=== PATIENT | male | born 1960 | race Caucasian/White ===

== ENCOUNTER → 2018-09-17 | Outpatient (CLI) | payer BC ==
[~2018-09-17] MED LIST: ACYC400T PO; GASTROGRAFIN SOLUTION 30ML (Q9963) As Ordered ONE; ISOVUE-370 76% 100ML VIAL (Q9967) As Ordered ONE; LISI40TA PO; TRAM50TA2 PO
--- NOTE | 2018-09-17 22:12 | REP ---
Clinical: Non-Hodgkin's lymphoma. Technique: Axial contrast enhanced images from the thoracic inlet to the upper abdomen with coronal and sagittal re-formations using 100 ml Isovue 370 intravenous contrast material. Findings: Bilateral lung saxena demonstrate minimal chronic-appearing fibroatelectatic changes. No focal consolidation, significant nodule or mass lesion. No pleural effusion or pneumothorax. Tracheobronchial tree is patent. No axillary, hilar, or mediastinal adenopathy. The mediastinum demonstrates normal thoracic aorta, pulmonary vasculature, and heart/pericardium. Musculoskeletal structures without focal osseous abnormality. Impression: No acute mediastinal or pleuroparenchymal process appreciated. No adenopathy, consolidation/mass or effusion. Electronically Signed by Anthony Hanson MD 09/17/2018 10:04 P
--- NOTE | 2018-09-17 22:16 | REP ---
Clinical: Non-Hodgkin's lymphoma. Technique: Axial contrast enhanced images from the lung bases to the pubic symphysis using oral (per protocol) and 100 ml Isovue 370 intravenous contrast material with coronal and sagittal re-formations as well as delayed images of the abdomen. Findings: Lung bases demonstrate minimal posterior basilar dependent changes. Visualized heart and pericardium normal. Liver, spleen, pancreas, bilateral adrenal glands and kidneys are normal. The enteric system is without obstruction or acute inflammatory process. Pelvis demonstrates normal bladder and age appropriate prostate/seminal vesicles. No ascites. No free air. 4.5 cm fat containing periumbilical hernia identified. Abdominal aorta without aneurysm or dissection. Few scattered retroperitoneal/para-aortic lymph nodes are identified measuring up to 1.8 cm diameter. Skeletal structures demonstrate degenerative changes without focal osseous abnormality. Impression: 1. Few scattered retroperitoneal and para-aortic pathologic lymph nodes measure up to 1.8 cm maximal diameter. 2. 4.5 cm fat containing periumbilical hernia. Electronically Signed by Anthony Hanson MD 09/17/2018 10:08 P
== END ==
LOC: M RAD 13:54
PROVIDERS: ATTEND Internal Medicine Hematology & Oncology
DX: C81.90 Hodgkin lymphoma, unspecified, unspecified site (principal); K42.9 Umbilical hernia without obstruction or gangrene
CPT/HCPCS: 71260; 74177; Q9963; Q9967

== ENCOUNTER → 2019-12-07 | Outpatient (CLI) | payer MEDICAID ==
[~2019-12-07] MED LIST changes: -GASTROGRAFIN SOLUTION 30ML (Q9963) As Ordered ONE; -ISOVUE-370 76% 100ML VIAL (Q9967) As Ordered ONE
== END ==
LOC: M PLARAD 13:21
PROVIDERS: ATTEND Internal Medicine Hematology & Oncology
DX: C88.4 Extranodal marginal zone B-cell lymphoma of mucosa-associated lymphoid tissue [MALT-lymphoma] (principal)
CPT/HCPCS: 78815; A9552

== ENCOUNTER 2019-12-20 02:59 | Inpatient (IN) | payer MEDICAID ==
[~2019-12-20] VITALS: Ht 182.9 cm; Wt 157.0 kg
[2019-12-20] VITALS (7 sets, daily range): BP systolic 108–126; BP diastolic 50–68
[2019-12-20] MEDS ORDERED: NS 1,000 ML IV ONE (04:00)
[2019-12-20] MEDS ORDERED: ISOVUE-370 76% 100ML VIAL As Ordered ONE (04:04)
[2019-12-20 04:08] LABS: BASO % 0.1 % (0.0-1.0); EOS # 0.4 10^3/uL (0.0-0.5); EOS % 1.6 % (0.0-3.0); HEMATOCRIT 32.6 % (42.0-52.0); HEMOGLOBIN 10.4 g/dl (13.5-17.5); LYMPH # 2.6 10^3/uL (1.5-5.0); MEAN CORPUSCULAR HEMOGLOBIN 25.5 pg (27.0-33.0); MEAN CORPUSCULAR HGB CONC 31.9 g/dl (32.0-36.5); MEAN CORPUSCULAR VOLUME 79.9 fl (80.0-96.0); MONO # 1.1 10^3/uL (0.0-0.8); MONO % 4.9 % (0.0-5.0); NEUTROPHILS # 17.4 10^3/uL (1.5-8.5); NEUTROPHILS % 80.3 % (36.0-66.0); PLATELET COUNT, AUTOMATED 336 10^3/uL (150-450); RED BLOOD COUNT 4.08 10^6/uL (4.30-6.10); WHITE BLOOD COUNT 21.7 10^3/uL (4.0-10.0)
[2019-12-20] MEDS ORDERED: AMIO200T PO (04:47)
[2019-12-20] MEDS ORDERED: ELIQ2.5T PO (04:47)
[2019-12-20] MEDS ORDERED: DILT180C70 PO (04:47)
[2019-12-20] MEDS ORDERED: DOK1CAP7 PO (04:47)
[2019-12-20 04:53] LABS: ALBUMIN 2.1 GM/DL (3.2-5.2); ALT/SGPT 54 U/L (12-78); BILIRUBIN,DIRECT 0.1 MG/DL (0.0-0.2); BILIRUBIN,TOTAL 0.4 MG/DL (0.2-1.0); CK-MB VALUE MASS < 1.0 NG/ML (<3.6); CPK CREATINE PHOSPHOKINASE 24 U/L (39-308); LIPASE 61 U/L (73-393); MB/CK RELATIVE INDEX 4.17 (< OR =4); TOTAL PROTEIN 7.6 GM/DL (6.4-8.2); TROPONIN I 0.02 NG/ML (< 0.10)
[2019-12-20] MEDS ORDERED: PIPERACILLIN/TAZOBACTAM SOD 4.5 GM in D5W MINI-BAG PLUS 50 ML IV ONE (05:00)
[2019-12-20] MEDS ORDERED: NS IV ONE (05:00)
[2019-12-20 05:24] LABS: BLOOD UREA NITROGEN 22 MG/DL (7-18); CALCIUM LEVEL 8.6 MG/DL (8.8-10.2); CARBON DIOXIDE LEVEL 26 MEQ/L (21-32); CHLORIDE LEVEL 98 MEQ/L (98-107); CREATININE FOR GFR 1.61 MG/DL (0.70-1.30); GLOMERULAR FILTRATION RATE 46.8 (>49); GLUCOSE, FASTING 181 MG/DL (70-100); POTASSIUM SERUM 4.7 MEQ/L (3.5-5.1); SODIUM LEVEL 131 MEQ/L (136-145)
--- NOTE | 2019-12-20 05:46 | ECGEPIP ---
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
[2019-12-20] MEDS ORDERED: KETOROLAC 30 MG/ML 1ML VIAL IV ONE (06:15)
[2019-12-20] MEDS ORDERED: VANCOMYCIN HCL 1,000 MG, VIAL MATE ADAPTER 1 EACH in D5W 250 ML IV ONE (07:00)
[2019-12-20 07:17] LABS: HEMOGLOBIN A1c 6.7 %
[2019-12-20 07:21] LABS: PERCENT SATURATION 6.4 % (19.7-50.0)
--- NOTE | 2019-12-20 07:21 | HPEPDOC ---
[facility] Medical History & Physical Date of Admission Dec 20, 2019 Date of Service: Dec 20, 2019 Attending Physician: OBED DALEY MD History and Physical TIME OF SERVICE: 5:25 AM CHIEF COMPLAINT: Abdominal pain HISTORY OF PRESENT ILLNESS: This is a 59-year-old male who presents with complaints of pain everywhere. Specifically's been complaining of abdominal pain that is worse with standing and better with lying down. He is also complaining of having a headache and shortness of breath. He denies having chest pain, fever, chills, runny nose, or any sick contacts. He also denies having nausea, vomiting, or pain with urination. Per discussion with Dr. Crooks, the initial CT report showed and thickening of the bladder wall , along with fat stranding, a UA was unremarkable. The initial blood pressure was 200/110, but dropped to 85/51; the patient was also found to have leukocytosis and elevated lactic acid, based on these findings Zosyn and IV fluids were ordered. 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 HOME MEDICATIONS: Please see below. PHYSICAL EXAMINATION: Vital Signs Date Time Temp Pulse Resp B/P (MAP) Pulse Ox O2 Delivery O2 Flow Rate FiO2 12/20/19 03:00 98.9 96 20 200/110 (140) 99 Room Air GEN: well-nourished / well developed/ NAD HEENT: NCAT CVS: RRR/NMRG/ radial pulses intact / trace lower extremity edema LUNGS: / lungs are clear to auscultation bilaterally on room air ABDOMEN: Contour (obese) / has umbilical hernia/ soft but tender with palpation NEURO: CN 2-12 are grossly intact / speech is not dysarthric PSYCH: alert and oriented to person place and time/ able to understand and follow all commands LABORATORY DATA: Laboratory Tests 2 12/20/19 03:58: Immature Granulocyte % (Auto) 1.1, Neutrophils (%) (Auto) 80.3H, Lymphocytes (%) (Auto) 12.0L, Monocytes (%) (Auto) 4.9, Eosinophils (%) (Auto) 1.6, Basophils (%) (Auto) 0.1, Neutrophils # (Auto) 17.4H, Lymphocytes # (Auto) 2.6, Monocytes # (Auto) 1.1H, Eosinophils # (Auto) 0.4, Basophils # (Auto) 0.0, Nucleated Red Blood Cells % (auto) 0.0, Anion Gap 7L, Glomerular Filtration Rate 46.8L, Lactic Acid Level 2.1*H, Calcium Level 8.6L, Total Bilirubin 0.4, Direct Bilirubin 0.1, Aspartate Amino Transf (AST/SGOT) 22, Alanine Aminotransferase (ALT/SGPT) 54, Alkaline Phosphatase 89, Total Creatine Kinase 24L, Creatine Kinase MB < 1.0, Creatine Kinase MB Relative Index 4.17H, Troponin I 0.02, Total Protein 7.6, Albumin 2.1L, Albumin/Globulin Ratio 0.38L, Lipase 61L 12/20/19 05:10: POC Glucose (Misc Panel) 131H, POC Sodium (Misc Panel) 132L, POC Potassium (Misc Panel) 4.7, POC Chloride (Misc Panel) 96L, POC Total CO2 (Misc Panel) 28.0H, POC Blood Urea Nitrogen (Misc Panel 21, POC Ionized Calcium (Misc Panel) 4.6, POC Creatinine (Misc Panel) 1.7H, POC Hematocrit (Misc Panel) 31.0L 12/20/19 05:22: Urine Color YELLOW, Urine Appearance CLEAR, Urine pH 5.0, Urine Specific [place] 1.051, Urine Protein NEGATIVE, Urine Glucose (UA) NEGATIVE, Urine Ketones NEGATIVE, Urine Blood 1+H, Urine Nitrite NEGATIVE, Urine Bilirubin NEGATIVE, Urine Urobilinogen 0.2, Urine Leukocyte Esterase NEGATIVE, Urine WBC (Auto) 2, Urine RBC (Auto) 2, Urine Hyaline Casts (Auto) 0, Urine Bacteria (Auto) NEGA TIVE, Urine Squamous Epithelial Cells 0, Urine Sperm (Auto) IMAGING: CT abdomen final report pending. CTA chest report pending MICROBIOLOGY: 12/20/19 Blood Culture, Received Pending 12/20/19 Blood Culture, Received Pending ASSESSMENT: Mr. Leslie is a 59 yr old M w a PMH of Marginal B-cell lymphoma, Lymphocytoplasmic lymphoma, Waldenstrm's, Obesity & HTN who is admitted for evaluation of abdominal pain and SIRS/Sepsis of unclear cause. PLAN: 1. Abdominal pain of unclear cause EKG showed heart rate of 94 with RBBB Both a UA and troponin were unremarkable Plan: Admit to PCU /Tylenol when necessary for pain/follow-up CT reports 2. SIRS/sepsis of unclear cause. Criterial include: HR >90 /WBC >12 Lactic acid >2 Plan: telemetry / f/u repeat lactic acid and exam in 3H / c/w Vanc and Meropenem per sepsis order set / switch to lactate ringers /f/u blood cx, / Acetaminophen PRN for fever / target MAP 65 to 70 / f/u Is and Os with target UOP of at least 0.5 ml/kg/H / target serum glucose 140-180 while acutely ill 3. Hypotension Plan: f/u BP after initial 4.6L of IVF / f/u orthostats / fall precautions / hold amiodarone, diltiazem & lisinopril 4. Microcytic Anemia Plan: f/u stool occult and iron studies 5. SHAYY Plan: Is/Os, daily weights / IVF / f/u ulytes for FENa or FEUrea / renal US 6. Paroxysmal Afib? Plan: hold amiodarone bc of low BP / c/w apixaban 7. 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 consult & referral to Bariatric Surgeon / recommend cardiovascular exercise for 40 min 4-5 days a week DVT PROPHYLAXIS: apixaban DISPOSITION: likely home after at least 2 midnight's stay Home Medications Scheduled Amiodarone HCl (Amiodarone HCl) 200 Mg Tablet, 200 MG PO BID Apixaban (Eliquis) 2.5 Mg Tablet, 2.5 MG PO BID Docusate Sodium (Dok) 100 Mg Capsule, 100 MG PO BID Lisinopril (Lisinopril) 40 Mg Tab, 40 MG PO DAILY dilTIAZem HCl (Diltiazem 24Hr Cd) 180 Mg Cap.er.24h, 180 MG PO DAILY Allergies Coded Allergies: No Known Allergies (Unverified , 09/01/18) A-FIB/CHADSVASC A-FIB History Current/History of A-Fib/PAF?: Yes Current PO Anticoag Therapy: Yes OBED DALEY MD Dec 20, 2019 07:21
[2019-12-20] MEDS: LR 1,000 ML IV SCH ×2 (08:30→20:29)
[2019-12-20 08:34] LABS: CALCIUM LEVEL 7.5 MG/DL (8.8-10.2); CREATININE FOR GFR 1.41 MG/DL (0.70-1.30); GLOMERULAR FILTRATION RATE 54.6 (>49); POTASSIUM SERUM 4.7 MEQ/L (3.5-5.1)
[2019-12-20] MEDS: APIXABAN 2.5 MG TAB (ELIQUIS) PO SCH ×2 (08:43→20:29)
[2019-12-20] MEDS: DOCUSATE SODIUM 100 MG CAP PO SCH ×2 (08:43→20:29)
[2019-12-20 08:49] LABS: BASO # 0.1 10^3/uL (0.0-0.2); BASO % 0.2 % (0.0-1.0); EOS # 0.2 10^3/uL (0.0-0.5); EOS % 1.2 % (0.0-3.0); HEMATOCRIT 29.6 % (42.0-52.0); HEMOGLOBIN 9.7 g/dl (13.5-17.5); LYMPH # 2.5 10^3/uL (1.5-5.0); MEAN CORPUSCULAR HGB CONC 32.8 g/dl (32.0-36.5); MEAN CORPUSCULAR VOLUME 79.4 fl (80.0-96.0); MONO # 1.2 10^3/uL (0.0-0.8); MONO % 5.8 % (0.0-5.0); NEUTROPHILS # 16.5 10^3/uL (1.5-8.5); NEUTROPHILS % 79.8 % (36.0-66.0); PLATELET COUNT, AUTOMATED 311 10^3/uL (150-450); RED BLOOD COUNT 3.73 10^6/uL (4.30-6.10); WHITE BLOOD COUNT 20.7 10^3/uL (4.0-10.0)
[2019-12-20] MEDS: VANCOMYCIN HCL 1,000 MG, VIAL MATE ADAPTER 1 EACH in D5W 250 ML IV SCH ×2 (09:51→21:53)
--- NOTE | 2019-12-20 10:54 | PHACANCOPD ---
PHARMACY VANCOMYCIN DOSING Pt Demographics Demographics Patient Age:59 , Weight:153.300 , Gender: male Adjusted Body Weight Date: 12/20/19, Adjusted Body Weight: Kg Events Past 24 Hours Events Past 24 Hours: YES: Fever, Elevation in WBC Vancomycin Vancomycin Target Ranges: 15-20 mcg/ml Vancomycin Load Y/N: Yes Load Dose Date Time Vancomycin Load Dose: 2 GM Date: 12/20/19 Time: 0900 Vancomycin Dose Date: 12/20/19. Current Vancomycin Dose: [Vanco 1 gm iv q12h] Intermittent Dosing?: No Labs Micro Microbiology 12/20/19 Blood Culture, Received Pending 12/20/19 Blood Culture, Received Pending Creatinine Clearance Date:12/20/19. Creatinine Clearance: . Assessment and Plan Maintaining Current Dose?: Yes Reason for dose change: No Dose Change Pharmacist Note Pharmacist Note Date: 12/20/19. Pharmacist note: Pharmacy consulted for Vancomycin dosing for treatment of Sepsis with a goal trough of 15-20 mcg/ml. The patient has no history of Vanco or MRSA here @ [facility]. MRSA PCR has been ordered. We'll load with 2 gms and follow with Vanco 1 gm IV q12h. Pharmacy will continue to monitor and make adjustments as needed. [facility] Dec 20, 2019 10:54
[2019-12-20] MEDS ORDERED: ACETAMINOPHEN TAB 650MG DOSE (2X325MG) PO PRN (11:00)
--- NOTE | 2019-12-20 11:10 | REP ---
RENAL ULTRASOUND: Real-time sonographic evaluation of kidneys performed. Kidneys are normal in size and echotexture, right kidney measuring 11.5 x 5.4 x 5.7 cm and left kidney 12.8 x 6.5 x 7.1 cm. There is no hydronephrosis, renal calculus, or mass identified. Urinary bladder is mildly distended and appears grossly unremarkable. IMPRESSION: Negative renal ultrasound. Preliminary report provided by [facility] at the time of the exam. Electronically Signed by Rob Bravo MD 12/20/2019 11:56 A
[2019-12-20] MEDS: MEROPENEM INJ 1 GM in IV 1 EA IV SCH ×2 (12:04→20:29)
[2019-12-20] MEDS ORDERED: CEPACOL LOZENGE PO PRN (12:45)
--- NOTE | 2019-12-20 12:51 | IPNPDOC ---
Text Note Date of Service The patient was seen on 12/20/19. NOTE Subjective: Patient continues to have back pain, sore throat and abdominal pain. In the morning 8 AM patient developed low-grade fever. Patient complains of numbness in his both hands Objective: GENERAL: awake, alert, NAD, morbidly obese male HEENT: NCAT, anicteric sclera, CATHY NECK: supple, no JVD CARDIOVASCULAR EXAMINATION: NS1S2, irregularly irregular RESPIRATORY EXAMINATION: CTA b/l, no wheezes/rales/rhonchi ABDOMINAL EXAMINATION: positive bowel sounds x 4, NT, obese EXTREMITIES: no cyanosis, clubbing, edema SKIN: warm, no rashes. NEUROLOGICAL EXAMINATION: AAO x 3, no motor/sensory deficits, hands numbness bilaterally Assessment and plan Patient is 59 years old male with past medical history of marginal B-cell lymphoma, Lymphocytoplasmic lymphoma,Waldenstrm's anemia presented to the hospital with abdominal pain. Patient was found to have low-grade fever, leukocytosis. Treatment with antibiotics started. Sepsis Unknown etiology CT abdomen/pelvis showed retro-peritoneal and pelvic adenopathy. Enlarged right obturated internus, likely infiltrated with tumor/adenopathy. Adenopathy is progressed since 09/17/18. CTA chest was unremarkable, no pulmonary emboli. Continue broad-spectrum antibiotics vancomycin and meropenem for now MRSA screen We will proceed with CT spine given persistent back pain and hands numbness in order to rule out any metastasis or spine abscess. Await blood culture Hypotension Resolved after IV fluid Microcytic anemia Most likely secondary to malignancy Check stool for blood Atrial fibrillation Heart rate is under control Continue apixaban Obesity Complicated care Obstructive sleep apnea CPAP VS,Fishbone, I+O VS, Fishbone, I+O Laboratory Tests 12/20/19 03:58 12/20/19 06:37 12/20/19 06:40 Vital Signs Date Time Temp Pulse Resp B/P (MAP) Pulse Ox O2 Delivery O2 Flow Rate FiO2 12/20/19 11:56 98 126/60 (82) 12/20/19 08:00 100.1 17 98 Room Air I&O- Last 24 Hours up to 6 AM 12/20/19 06:00 Intake Total 4650 ml Balance 4650 ml WILMER DANIEL DO Dec 20, 2019 12:51
[2019-12-20] MEDS: traMADol 50 MG TAB PO PRN (13:16)
--- NOTE | 2019-12-20 14:18 | REP ---
CT study of the cervical spine without contrast: History: Bilateral hand numbness. Back pain. Technique: Helical scanning is acquired and overlapping 2 mm high resolution axial images were generated and reviewed at bone and soft tissue window settings. Coronal and sagittal multiplanar re-formations images are generated. CT findings: There is no evidence of cervical spine element fracture. No skull base fracture is seen. Cervical vertebral body heights are preserved. Alignment is normal. Facet joints are normally aligned bilaterally at each cervical level on multiplanar re-formations images. There is no evidence of intraspinal or paraspinal hematoma. No extra vertebral abnormality is seen. There are degenerative spondylosis changes with anterior discogenic spurring at the each level from C3-4 through C6-7. There is osteoarthritis at the articulation between the dens and the anterior arch of C1. Minimal facet hypertrophy changes are noted. No visible bony destructive lesion. No foraminal stenosis is appreciated. Impression: Mild degenerative spondylosis changes. Otherwise negative CT study of the cervical spine without contrast. Electronically Signed by Michael Rhoades MD 12/20/2019 02:09 P
[2019-12-20] MEDS: AMIODARONE 200 MG TAB (PACERONE) PO SCH ×2 (15:05→20:29)
[2019-12-20] MEDS ORDERED: IBUPROFEN 400 MG TAB PO ONE (16:30)
[2019-12-20 17:29] LABS: BASO # 0.1 10^3/uL (0.0-0.2); BASO % 0.2 % (0.0-1.0); EOS # 0.2 10^3/uL (0.0-0.5); HEMATOCRIT 30.7 % (42.0-52.0); HEMOGLOBIN 10.1 g/dl (13.5-17.5); LYMPH # 2.1 10^3/uL (1.5-5.0); LYMPH % 8.8 % (24.0-44.0); MEAN CORPUSCULAR HEMOGLOBIN 26.2 pg (27.0-33.0); MEAN CORPUSCULAR HGB CONC 32.9 g/dl (32.0-36.5); MEAN CORPUSCULAR VOLUME 79.7 fl (80.0-96.0); MONO % 4.1 % (0.0-5.0); NEUTROPHILS # 20.4 10^3/uL (1.5-8.5); NEUTROPHILS % 84.5 % (36.0-66.0); PLATELET COUNT, AUTOMATED 330 10^3/uL (150-450); RED BLOOD COUNT 3.85 10^6/uL (4.30-6.10); WHITE BLOOD COUNT 24.1 10^3/uL (4.0-10.0)
--- NOTE | 2019-12-20 17:56 | REP ---
CT ANGIOGRAM CHEST: TECHNIQUE: Axial contrast enhanced images from the thoracic inlet to the upper abdomen using 100 mL Isovue 370 intravenous contrast material with multiplanar reformations. No acute infiltrate is seen in either lung. There are mild dependent atelectatic changes. There is mild cardiomegaly. There is no evidence of pulmonary embolism. There is no thoracic aortic aneurysm or dissection. There is no pleural or pericardial effusion. No mediastinal or hilar adenopathy is seen. No axillary adenopathy is seen. There are mild degenerative changes of the spine. IMPRESSION: No acute abnormalities detected. Mild cardiomegaly. Preliminary report provided by [facility] at the time of the exam. Electronically Signed by Rob Bravo MD 12/21/2019 10:23 A
[2019-12-20 19:25] LABS: TOTAL PROTEIN,RANDOM URINE 46.6 MG/DL (0.0-12.0)
[2019-12-20] MEDS: ACETAMINOPHEN *IV* 1,000 MG in IV 1 EA IV ONE (20:20)
--- NOTE | 2019-12-20 20:29 | REPVR ---
PROCEDURE INFORMATION: Exam: MR Lumbar Spine Without Contrast. Exam date and time: 12/20/2019 6:10 PM Age: 59 years old Clinical indication: Low back pain; Patient HX: Back pain, limited sequences, PT could not tolerate further imaging at this time. ; Additional info: Question epidural abscessn TECHNIQUE: Imaging protocol: Multiplanar magnetic resonance images of the lumbar spine without intravenous contrast. COMPARISON: CT Spine, lumbar w/o contrast 12/20/2019 1:54 PM FINDINGS: Limitations: Examination is limited without use of axial sequences and postcontrast sequences. Vertebral body heights are maintained. Multilevel Schmorl's node phenomena. Vertebral body hemangioma at L1. No evidence of acute fracture No cord compression. No abnormal cord signal. Conus medullaris terminates at the L1 level. L1-L2: Broad-based disc bulge causes mild bilateral foraminal narrowing. No significant canal narrowing. L2-L3: No significant canal or foraminal narrowing. L3-L4: No significant canal or foraminal narrowing. L4-L5: Broad-based disc bulge and facet hypertrophy causes mild canal narrowing with mild left and moderate right foraminal narrowing. L5-S1: Broad-based disc bulge and facet hypertrophy cause mild canal narrowing with mild right and moderate to severe left foraminal narrowing. IMPRESSION: 1. No definite acute findings in the lumbar spine, however examination limited without use of axial sequences and postcontrast sequences. If clinically indicated, consider further MR lumbar spine with axial sequences and postcontrast sequences. 2. Multilevel spondylotic changes of the lumbar spine, as detailed above. Please refer to CTA abdomen pelvis performed on same date for additional findings. Electronically signed by: Naresh Lloyd On 12/20/2019 20:29:15 PM
--- NOTE | 2019-12-20 22:55 | REP ---
CT ANGIOGRAM ABDOMEN AND PELVIS: CT angiogram abdomen and pelvis performed following the intravenous administration of 100 mL of Isovue-370. Sagittal and coronal reconstruction images are performed. The liver is mildly enlarged with diffuse fatty infiltration. No liver mass is seen. Gallbladder is grossly unremarkable. Spleen is normal in size with no intrinsic abnormality. The adrenal glands and pancreas are unremarkable. There is no hydronephrosis bilaterally. Subcentimeter hypodensity in the right kidney probably represents a cyst. There is no abdominal aortic aneurysm. There is no evidence of aortic dissection. There is moderate periaortic and pelvic adenopathy, which has increased since prior study. Largest periaortic lymph node measures 2.1 cm in short axis adjacent to the left kidney. Largest pelvic lymph node is on the right with a short axis dimension of 2.5 cm. The adjacent right obturator internus muscle is enlarged and appears to be involved with tumor. No bowel wall thickening is seen. There is no evidence of appendicitis. A small umbilical hernia contains fat, as seen on prior study of 09/17/2018. Urinary bladder is not well distended. Streaky densities in the perivesical fat could indicate cystitis. Prostate is mildly enlarged. Metallic clips are seen in the right inguinal region. There are degenerative changes of the spine. There may be some degree of narrowing at the origin of the celiac artery. IMPRESSION: Compared to the prior study of 09/17/2018, there is increased periaortic and pelvic adenopathy. There is mass-like enlargement of the right obturator internus, likely involved with tumor. Small umbilical hernia contains fat, unchanged. There is fatty infiltration of the liver with mild hepatomegaly. There may be some degree of narrowing of the celiac artery. No other evidence of acute abnormality in the abdomen or pelvis. Preliminary report provided by [facility] at the time of the exam. Electronically Signed by Rob Bravo MD 12/21/2019 10:24 A
--- NOTE | 2019-12-20 23:38 | REP ---
CT STUDY OF THE LUMBAR SPINE WITHOUT CONTRAST: HISTORY: Bilateral hand numbness. Back pain. TECHNIQUE: Helical scanning is acquired. Axial 4 mm images are reformatted. Coronal and sagittal MPR images are generated. CT FINDINGS: Lumbar vertebral body heights are preserved. Alignment is normal. There is no evidence of spondylolysis or spondylolisthesis. No bony destructive lesion is appreciated. There are small Schmorl nodes involving the endplates on either side of the L2-3 and L1-2 disc spaces. There is discogenic spurring at L4-5 and, to a lesser extent, at L5-S1. At the L5-S1 disc level, there is central disc bulging effacing the ventral epidural fat but not compressing the nerve roots or thecal sac. No bony foraminal narrowing is seen. There is mild osteoarthritic facet hypertrophy bilaterally. At L4-5, canal size is developmentally small. There is diffuse disc bulging. Minimal ligamentum flavum and facet hypertrophy combined with the above factors to produce moderate central canal stenosis at L4-5. The thecal sac measures approximately 7 mm in midline AP dimension. No definite neural foraminal narrowing. At L3-4, there is mild to moderate central canal stenosis as well due to developmentally short pedicles and diffuse disc bulging. Midline AP dimension of the thecal sac is 7 mm. There is mild foraminal disc bulging bilaterally. No definite nerve root compression, however. At L2-3, there is mild central canal stenosis due to mild disc bulging and developmentally short pedicles. No neural foraminal narrowing is seen. The L1-2 disc level is unremarkable. 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 Mild degenerative disc and facet changes. No acute abnormality seen. Electronically Signed by Michael Rhoades MD 12/21/2019 07:49 A
[2019-12-21] VITALS (7 sets, daily range): BP systolic 107–128; BP diastolic 59–74
[2019-12-21] MEDS: traMADol 50 MG TAB PO PRN (00:09)
--- NOTE | 2019-12-21 00:09 | REP ---
CT THORACIC SPINE WITHOUT CONTRAST: HISTORY: Back pain. Bilateral hand numbness. TECHNIQUE: Helical scanning is acquired. 4 mm axial images are reformatted. Coronal and sagittal MPR images are generated and reviewed. CT FINDINGS: Thoracic vertebral body heights are preserved. Alignment is normal. There is moderate anterior discogenic spurring, most pronounced along the right lateral anterior margin of the lower thoracic spine. No bony destructive lesion is seen. No fracture or collapse is observed. No bony neural foraminal narrowing is appreciated. There is a hemangioma on the right side of the L1 vertebral body. No extraspinal soft tissue abnormality is seen. No thoracic disc protrusion is appreciated. IMPRESSION: Degenerative spondylosis changes. No acute bony abnormality. Electronically Signed by Michael Rhoades MD 12/21/2019 07:50 A
[2019-12-21] MEDS: LR 1,000 ML IV SCH ×3 (00:10→20:41)
[2019-12-21] MEDS: RAMELTEON 8 MG TAB (ROZEREM) PO SCH ×2 (01:50→20:40)
[2019-12-21] MEDS: ACETAMINOPHEN *IV* 1,000 MG in IV 1 EA IV ONE (02:00)
[2019-12-21 03:02] LABS: MEAN CORPUSCULAR HEMOGLOBIN 25.4 pg (27.0-33.0); MEAN CORPUSCULAR HGB CONC 32.1 g/dl (32.0-36.5); MEAN CORPUSCULAR VOLUME 79.1 fl (80.0-96.0); PLATELET COUNT, AUTOMATED 297 10^3/uL (150-450); RED BLOOD COUNT 3.54 10^6/uL (4.30-6.10); WHITE BLOOD COUNT 19.9 10^3/uL (4.0-10.0)
[2019-12-21 03:25] LABS: ERYTHROCYTE SEDIMENTATION RATE 128 mm/hr (0-20)
[2019-12-21 03:30] LABS: BLOOD UREA NITROGEN 16 MG/DL (7-18); CALCIUM LEVEL 7.7 MG/DL (8.8-10.2); CARBON DIOXIDE LEVEL 25 MEQ/L (21-32); CHLORIDE LEVEL 102 MEQ/L (98-107); CPK CREATINE PHOSPHOKINASE 19 U/L (39-308); CREATININE FOR GFR 1.25 MG/DL (0.70-1.30); GLOMERULAR FILTRATION RATE > 60.0 (>49); GLUCOSE, FASTING 128 MG/DL (70-100); POTASSIUM SERUM 4.6 MEQ/L (3.5-5.1); SODIUM LEVEL 133 MEQ/L (136-145)
[2019-12-21] MEDS: MEROPENEM INJ 1 GM in IV 1 EA IV SCH ×3 (04:31→20:41)
[2019-12-21 04:54] LABS: ERYTHROCYTE SEDIMENTATION RATE 93 mm/hr (0-20)
[2019-12-21] MEDS: DOCUSATE SODIUM 100 MG CAP PO SCH ×2 (08:30→20:41)
[2019-12-21] MEDS: APIXABAN 2.5 MG TAB (ELIQUIS) PO SCH ×2 (08:30→20:41)
[2019-12-21] MEDS: AMIODARONE 200 MG TAB (PACERONE) PO SCH ×2 (08:30→20:41)
[2019-12-21] MEDS: PERCOCET 5MG/325MG TAB PO PRN ×3 (09:19→20:40)
--- NOTE | 2019-12-21 10:13 | PHACANCOPD ---
PHARMACY VANCOMYCIN DOSING Pt Demographics Demographics Patient Age:59 , Weight:157.200 , Gender: male Adjusted Body Weight Date: 12/20/19, Adjusted Body Weight: Kg Vancomycin Vancomycin Target Ranges: 15-20 mcg/ml Vancomycin Load Y/N: Yes Load Dose Date Time Vancomycin Load Dose: 2 GM Date: 12/20/19 Time: 0900 Vancomycin Dose Date: 12/21/19. Current Vancomycin Dose: [Vanco 1250 mg IV q12h] Date: 12/20/19. Current Vancomycin Dose: [Vanco 1 gm iv q12h] Intermittent Dosing?: No Labs Micro Microbiology 12/20/19 Blood Culture, Received Pending 12/20/19 - Final, Complete 12/20/19 Blood Culture - Preliminary, Resulted No growth after 24 hours . All specim... 12/20/19 Blood Culture - Preliminary, Resulted No growth after 24 hours . All specim... Creatinine Clearance Date:12/20/19. Creatinine Clearance: . Assessment and Plan Maintaining Current Dose?: No Reason for dose change: Trough too low Pharmacist Note Pharmacist Note Date: 12/21/19. Pharmacist note: Trough drawn @0907 resulted at 7.6. We'll give him an additional 500 mg and increase maintenance dose to 1250 mg IV q12h starting @2100. Pharmacy will continue to monitor and make adjustments as needed. Date: 12/20/19. Pharmacist note: Pharmacy consulted for Vancomycin dosing for treatment of Sepsis with a goal trough of 15-20 mcg/ml. The patient has no history of Vanco or MRSA here @ [facility]. MRSA PCR has been ordered. We'll load with 2 gms and follow with Vanco 1 gm IV q12h. Pharmacy will continue to monitor and make adjustments as needed. [facility] Dec 21, 2019 10:13
[2019-12-21] MEDS: VANCOMYCIN HCL 1,000 MG, VIAL MATE ADAPTER 1 EACH in D5W 250 ML IV SCH (10:20)
[2019-12-21] MEDS ORDERED: VANCOMYCIN HCL 500 MG in D5W MINI-BAG PLUS 100 ML IV ONE (11:00)
[2019-12-21 13:42] LABS: BASO % 0.1 % (0.0-1.0); EOS # 0.4 10^3/uL (0.0-0.5); EOS % 2.2 % (0.0-3.0); HEMATOCRIT 28.8 % (42.0-52.0); HEMOGLOBIN 9.3 g/dl (13.5-17.5); LYMPH # 1.3 10^3/uL (1.5-5.0); LYMPH % 7.9 % (24.0-44.0); MEAN CORPUSCULAR HEMOGLOBIN 25.8 pg (27.0-33.0); MEAN CORPUSCULAR HGB CONC 32.3 g/dl (32.0-36.5); MEAN CORPUSCULAR VOLUME 79.8 fl (80.0-96.0); MONO # 0.4 10^3/uL (0.0-0.8); MONO % 2.2 % (0.0-5.0); NEUTROPHILS # 14.7 10^3/uL (1.5-8.5); NEUTROPHILS % 86.8 % (36.0-66.0); PLATELET COUNT, AUTOMATED 302 10^3/uL (150-450); RED BLOOD COUNT 3.61 10^6/uL (4.30-6.10); WHITE BLOOD COUNT 16.9 10^3/uL (4.0-10.0)
[2019-12-21 14:14] LABS: ALT/SGPT 41 U/L (12-78); BILIRUBIN,TOTAL 0.5 MG/DL (0.2-1.0); BLOOD UREA NITROGEN 15 MG/DL (7-18); CALCIUM LEVEL 8.5 MG/DL (8.8-10.2); CARBON DIOXIDE LEVEL 24 MEQ/L (21-32); CHLORIDE LEVEL 99 MEQ/L (98-107); CREATININE FOR GFR 1.19 MG/DL (0.70-1.30); GLOMERULAR FILTRATION RATE > 60.0 (>49); GLUCOSE, FASTING 171 MG/DL (70-100); POTASSIUM SERUM 4.6 MEQ/L (3.5-5.1); SODIUM LEVEL 130 MEQ/L (136-145); TOTAL PROTEIN 7.6 GM/DL (6.4-8.2)
--- NOTE | 2019-12-21 14:50 | IPNPDOC ---
Text Note Date of Service The patient was seen on 12/21/19. NOTE Subjective: Patient continues to have back pain. Fever resolved. Also patient complains of sore muscle, he described as diffuse muscle pain of upper extremities. Objective: GENERAL: awake, alert, NAD, morbidly obese male HEENT: NCAT, anicteric sclera, CATHY NECK: supple, no JVD CARDIOVASCULAR EXAMINATION: NS1S2, irregularly irregular RESPIRATORY EXAMINATION: CTA b/l, no wheezes/rales/rhonchi ABDOMINAL EXAMINATION: positive bowel sounds x 4, NT, obese Back: no pinpoint tenderness, flexion, extension limited and painfull EXTREMITIES: no cyanosis, clubbing, edema SKIN: warm, no rashes. NEUROLOGICAL EXAMINATION: AAO x 3, no motor/sensory deficits, hands numbness bilaterally Assessment and plan Patient is 59 years old male with past medical history of marginal B-cell lymphoma, Lymphocytoplasmic lymphoma,Waldenstrm's anemia presented to the hospital with abdominal pain. Patient was found to have low-grade fever, leukocytosis. Treatment with antibiotics started. Sepsis Unknown etiology CT abdomen/pelvis showed retro-peritoneal and pelvic adenopathy. Enlarged right obturated internus, likely infiltrated with tumor/adenopathy. Adenopathy is progressed since 09/17/18. CTA chest was unremarkable, no pulmonary emboli. Continue broad-spectrum antibiotics vancomycin and meropenem for now MRSA screen CT spine negative for epidural abscess or mets MRI lumbar negative for epidural abscess blood culture negative Patient was not able to tolerate MRI of the neck and thoracic area ESR elevated to 128. We will proceed with echo Appreciate/agree with oncologist and ID consult Hypotension Resolved after IV fluid Microcytic anemia Most likely secondary to malignancy Check stool for blood We'll start iron supplementation Atrial fibrillation Heart rate is under control Continue apixaban Obesity Complicated care Obstructive sleep apnea CPAP SHAYY Secondary to volume contraction due to dehydration and sepsis Improved VS,Fishbone, I+O VS, Fishbone, I+O Laboratory Tests 12/20/19 17:04 12/21/19 02:55 12/21/19 13:25 Vital Signs Date Time Temp Pulse Resp B/P (MAP) Pulse Ox O2 Delivery O2 Flow Rate FiO2 12/21/19 12:00 98.6 77 20 117/63 (81) 94 Room Air I&O- Last 24 Hours up to 6 AM 12/21/19 06:00 Intake Total 4998 ml Output Total 2505 ml Balance 2493 ml WILMER DANIEL DO Dec 21, 2019 14:50
[2019-12-21] MEDS ORDERED: IRON SUCROSE 100MG 5ML VIAL (J1756 PER 1MG) IV ONE (15:00)
[2019-12-21] MEDS ORDERED: methylPREDNISolone INJ 125 MG/2 ML VIAL (J2930) IV ONE (15:30)
[2019-12-21] MEDS ORDERED: IRON SUCROSE 100 MG in NS 100 ML OVER 1 HR IV ONE (17:00)
[2019-12-21] MEDS: DOXYCYCLINE HYCLATE 100 MG in D5W MINI-BAG PLUS 100 ML IV SCH (18:07)
[2019-12-21 20:36] LABS: IMMUNOGLOBULIN A 59.6 MG/DL (70-400); IMMUNOGLOBULIN G 315 MG/DL (681-1648); TOTAL PROTEIN 7.5 GM/DL (6.4-8.2)
[2019-12-21] MEDS ORDERED: VANCOMYCIN HCL 750 MG, VIAL MATE ADAPTER 1 EACH in D5W 250 ML IV SCH (21:00)
[2019-12-21] MEDS ORDERED: VANCOMYCIN HCL 500 MG in D5W MINI-BAG PLUS 100 ML IV SCH (22:00)
[2019-12-22] VITALS: BP 116/64
[2019-12-22] MEDS: traMADol 50 MG TAB PO PRN (00:23)
[2019-12-22] MEDS: LR 1,000 ML IV SCH (00:24)
[2019-12-22] MEDS: MEROPENEM INJ 1 GM in IV 1 EA IV SCH ×2 (03:56→12:09)
[2019-12-22 04:00] VITALS: BP 137/74
[2019-12-22] MEDS: DOXYCYCLINE HYCLATE 100 MG in D5W MINI-BAG PLUS 100 ML IV SCH (04:57)
[2019-12-22 05:33] LABS: BASO % 0.1 % (0.0-1.0); HEMOGLOBIN 8.8 g/dl (13.5-17.5); LYMPH # 0.8 10^3/uL (1.5-5.0); LYMPH % 6.7 % (24.0-44.0); MEAN CORPUSCULAR HEMOGLOBIN 26.1 pg (27.0-33.0); MEAN CORPUSCULAR HGB CONC 32.6 g/dl (32.0-36.5); MEAN CORPUSCULAR VOLUME 80.1 fl (80.0-96.0); MONO # 0.2 10^3/uL (0.0-0.8); MONO % 1.4 % (0.0-5.0); NEUTROPHILS # 10.8 10^3/uL (1.5-8.5); PLATELET COUNT, AUTOMATED 284 10^3/uL (150-450); RED BLOOD COUNT 3.37 10^6/uL (4.30-6.10); WHITE BLOOD COUNT 11.8 10^3/uL (4.0-10.0)
[2019-12-22 05:56] LABS: ALBUMIN 1.9 GM/DL (3.2-5.2); ALT/SGPT 38 U/L (12-78); BILIRUBIN,TOTAL 0.3 MG/DL (0.2-1.0); BLOOD UREA NITROGEN 15 MG/DL (7-18); CALCIUM LEVEL 8.5 MG/DL (8.8-10.2); CARBON DIOXIDE LEVEL 26 MEQ/L (21-32); CHLORIDE LEVEL 102 MEQ/L (98-107); CREATININE FOR GFR 1.01 MG/DL (0.70-1.30); GLOMERULAR FILTRATION RATE > 60.0 (>49); GLUCOSE, FASTING 217 MG/DL (70-100); MAGNESIUM LEVEL 2.3 MG/DL (1.8-2.4); POTASSIUM SERUM 4.7 MEQ/L (3.5-5.1); SODIUM LEVEL 134 MEQ/L (136-145); TOTAL PROTEIN 7.9 GM/DL (6.4-8.2)
[2019-12-22] MEDS: PERCOCET 5MG/325MG TAB PO PRN (06:33)
[2019-12-22 08:00] VITALS: BP 131/72
--- NOTE | 2019-12-22 08:12 | CR ---
DATE OF CONSULTATION: 12/21/2019 REASON FOR CONSULTATION: We were asked to see Mr. Naresh Leslie due to sepsis of unclear etiology. HISTORY OF PRESENT ILLNESS: Naresh is a 59-year-old male who presented to the emergency department at [facility] on 12/20/2019 due to about a week history of burning pain all over his body. His symptoms began after receiving chemotherapy treatment on 12/10/2019. He was treated with bendamustine and Rituximab and decadron on that date. He states he has a history of reaction to Rituximab and was told previously not to take it due to allergic reaction. During the infusion, he began to experience tightness and pain in his neck and some difficulty breathing. He then developed burning pain all over his body. He also noted some abdominal pain which worsened upon standing and improved upon laying down. He also experienced subjective fevers and chills alternating. He states that he would lay in his car because he could adjust the seat to a comfortable position and adjust the heated seat depending on if he was feeling hot or cold. He denied any night sweats, change in weight, nausea, vomiting, cough, upper respiratory infection symptoms, dysuria, diarrhea, or constipation. He states he has pain with any type of movement, especially when putting pressure on a certain area will elicit pain in that area or tightening of the muscles in his legs will elicit pain. He states this feels similar to the reaction he had previously to Rituximab, but at that time years ago when he had this reaction the infusion was stopped and he was given Benadryl. He states at that time his symptoms resolved more quickly. After his infusion on 12/10/2019, he presented to [facility] on 12/11/2019. He states he spent three nights at the hospital. He states he received antibiotics and was treated for new onset atrial fibrillation. He did not receive any antibiotics on discharge. He continued to have worsening symptoms over the course of the week until he presented to [facility] emergency department the other day. He has not had any sick contacts. On admission, the patient was started on vancomycin and meropenem for broad spectrum antibiotic coverage. He experienced a T-max of 103.3 on 12/20/2019. He states his symptoms have not improved since he was admitted to the hospital Past Medical history: 1- lymphoblastic lymphoma/Waldenstrom macroglobulinemia which was initially diagnosed in [place] in November 2015. He received chemotherapy with multiple different regimens and had the best response with bendamustine and Rituximab, based on the notes from our local oncologist practice. He was doing well up until about September 2019 when he was noted to have some progression of the disease and it was decided that he should be restarted on the bendamustine and Rituximab chemotherapy. His treatment on 12/10/2019 was the first treatment he received since establishing care with the oncologist in [place], [place]. 2- Menno spotted fever at one point when he lived in [place] many years ago. He states that this also feels quite similar to that disease process treated with doxycycline. 3- paroxysmal atrial fibrillation, chronic hypertension, obesity. REVIEW OF SYSTEMS: Ten point review of systems negative other than pertinent positives discussed in history of present illness (HPI). SURGICAL HISTORY: Left knee arthroscopy, right inguinal lymph node excision/biopsy. SOCIAL HISTORY: Smoked one pack per day for many years, recently cut back to a half a pack a day, has not smoked since 12/10/2019. Social alcohol use. Denies illicit or IV drug use. Originally from the [facility]. Lived in [place] for about 16 years. Moved back to the [facility] about a year and a half ago. FAMILY HISTORY: Significant for diabetes and hypercholesterolemia in family members. One sibling had colon cancer. HOME MEDICATIONS - amiodarone 200 mg twice a day - Eliquis 2.5 mg twice a day - lisinopril 40 mg daily - diltiazem ER 180 mg daily ALLERGIES: Reports previous allergic reaction to RITUXIMAB with burning pain all over his body and difficulty breathing. PHYSICAL EXAMINATION: Vital Signs: Temperature 98.6, 24 hour T-max 103.3, heart rate 77, respiratory rate 20, blood pressure 117/63, oxygen saturation 94% on room air. General: Appears somewhat uncomfortable, lying in bed, no acute distress, well hydrated and nourished. HEENT: Normocephalic, atraumatic. Sclerae anicteric. Conjunctivae slightly injected bilaterally. Moist mucous membranes. No lesions in the mouth. Neck: Supple. No lymphadenopathy appreciated. Lungs: Clear to auscultation bilaterally. No wheezing, rhonchi or rales noted. Heart: Regular rate and rhythm. Normal S1, S2. No murmurs, rubs or gallops appreciated. Abdomen: Obese. Soft. Nontender. Bowel sounds present. Small umbilical hernia noted. Extremities: Non pitting edema in the ankles and hands bilaterally. Pulses 2+ in the radial and dorsalis pedis arteries. No cyanosis or clubbing. Skin: Blanching erythematous rash across the cheeks and abdomen. Neurologic: Alert and oriented. No focal deficits appreciated. LABORATORY DATA: White blood cell count 16.9, hemoglobin 9.3, hematocrit 28.8, platelet count 302. ESR 128. Sodium 130, potassium 4.6, chloride 99, bicarbonate 24, BUN 15, creatinine 1.19, glucose 171, calcium 8.5, total bilirubin 0.5, AST 19, ALT 41, alkaline phosphatase 84, total protein 7.6, albumin 2.0. C-reactive protein 14.0. Creatinine kinase 26. Procalcitonin pending. Vancomycin trough 7.6. Urinalysis significant for 1+ blood, otherwise negative. Methicillin-resistant Staphylococcus aureus (MRSA) PCR negative. COVID-19 PCR negative. Blood cultures times two negative at 24 hours, unclear if these were drawn from peripheral site or port. Blood culture drawn after administration of antibiotics is pending. Respiratory PCR negative. IMAGING: From 12/20/2019, CT angiography abdomen/pelvis significant for increased periaortic and pelvic adenopathy. There is a mass-like enlargement of the right obturator internus, likely involved with tumor. Small umbilical hernia contains fat, unchanged. There is fatty infiltration of the liver with mild hepatomegaly. There is some degree of narrowing of the celiac artery, no other evidence of acute abnormality in the abdomen or pelvis. CT angiography chest significant for no acute abnormalities detected, mild cardiomegaly. Renal ultrasound, negative renal ultrasound. CT thoracic spine significant for degenerative spondylosis changes, no acute bony abnormality. CT lumbar spine significant for developmental and acquired central calcinosis, central canal stenosis, moderate at L4-5 and mild to moderate L3-4. Mild degenerative disk and facet changes. No acute abnormalities seen. CT cervical spine significant for mild degenerative spondylosis changes. MRI lumbar spine significant for multi level spondylotic changes of the lumbar spine, no definitive acute findings; however, examination limited without the use of axial sequences and post contract sequences. IMPRESSION: Sepsis due to unclear etiology. Patient is not presenting with any evident localizing symptoms. Reaction to Rituximab is a possibility, as it can cause a serum sickness reaction. This often occurs as a delayed reaction, but if he has received Rituximab multiple times in the past the reaction may occur more acutely to the time of administration. He also may have had a combined allergic reaction acutely and developed a serum sickness reaction in the following days. Imaging at this point has not revealed any clear infection source. Infection of his Kahdnd-M-Chfn is on the differential, although with such a systemic reaction I would expect peripheral blood cultures to be positive if the port was infected. Currently, the [facility] is not able to draw blood, but if this were cleared with tPA, we could draw a blood culture from the port. Also in the differential is tick borne disease, which he has had in the past and presented similarly. It is not currently tick season, so this is less likely, although he could be having a delayed reaction. PLAN: We have discontinued vancomycin and started the patient on IV doxycycline to cover for most tick borne illness. We will continue meropenem for broad spectrum coverage. We have also given him a dose of prednisone for concern of a serum sickness type reaction. Dr. Wiggins from oncology is also consulted to see the patient and will help decide whether to continue with steroid coverage. We will try to obtain the records from the recent admission to [facility] and the patient's records from the cancer center he was treated at in [place] to better understand the reaction he had to Rituximab during their treatment. We have also ordered tick borne illness panels to help rule out this possibility. Thank you for this consult, we will continue to follow along. YANNICK
--- NOTE | 2019-12-22 09:33 | CR ---
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 REQUESTING PHYSICIAN: Carter Beaver MD HISTORY OF PRESENT ILLNESS: Mr. Kincaid is of a 59-year-old man under the care of Dr. 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 Immunohistochemistry positive for CD5, CD10, CD23, and cyclin D1 negative. Positive for MYD88 L265P alteration consistent with lymphoplasmacytic lymphoma. A bone marrow biopsy in December of 2015 showed marrow replaced with low grade lymphoma. Baseline M-spike was 4.6 gram IgM lambda, IgM level 8070, serum viscosity not assessed, beta-2 microglobulin not assessed, hep C negative at the time. PET/CT on initial workup showed lymphadenopathy involving chest, abdomen, and mainly pelvis including up to 5 cm right inguinal lymph node SUV 4, no splenomegaly and no apparent extra flowre disease. He was treated with weekly bortezomib between January 08 and January 23, 2016 with no response by IgM. On January 16, 2016 he started rituximab. On January 30, 2016 carfilzomib was added to the rituximab both discontinued a week later no response by IgM. In the third week of January 2016 he was started on ibrutinib. The baseline M- spike 5 gram baseline IgM at that 8180. This was continued until August 2017 when it was stopped due to progression. He then transferred his care in April 2017 to Sierra Ogden MD in [place]. Of note, on his initial visit with Dr. Ogden the patient complained of mild diffuse arthritic aches and pains. CTs as late as May 2018 showed retroperitoneal and pelvic lymphadenopathy with improvement, para-aortic lymphadenopathy up to 12 mm. The history further contains the story that on receiving bendamustine and rituximab, rituximab was discontinued after one cycle due to the patient's complaint of severe malaise and body aches; Dr. Ogden suspected his complaints were related to hyperviscosity in a setting of an IgM flareup to 7000. He apparently completed five more cycles with bendamustine alone with good response. This history was all obtained towards late 2017. The patient has been traveling back and forth between [facility] and [place]. He was followed by Dr. Callejas in February 2019 here at the cancer center. Under Dr. Callejas he continued on observation. 9 months later, he presented again in early November and saw Dr. Benjamín Flores of the cancer center. At this time, Dr. Flores recommended treatment again with bendamustine/rituximab based on the patient's prior response to bendamustine/rituximab, and apparent progression through ibrutinib. Baseline [facility] from early November showed IgM 2460, serum viscosity 2.5 elevated, WBC 11.4, hemoglobin/hematocrit 12 and 37, platelets normal, renal and liver function also normal, albumin 3.2. On 12/09/2019, the patient started reinduction treatment receiving bendamustine that day followed bendamustine and rituximab the following day, 12/10/2019. Infusion itself was uneventful but Naresh reports beginning to feel poorly within 24-48 hours and went to the [facility] on Friday the . There. He was admitted with general myalgias, fever, and he reports shortness of breath. He has put in isolation, left against medical advice after 2 days. He does not recall what treatment he received. Through the following week from the to the he again felt very poorly, sleeping in his car to try to get comfortable with generalized stiffness, pain, weakness in his arms and legs. He reports shortness of breath was not a primary symptom. He was not sure if he had fever, but he just felt so awful that he presented again to the emergency room on Friday the 18 of December. In the emergency room, early in the morning of the he was initially afebrile but hypertensive with blood pressure 200/110 and mildly tachycardiac, heart rate 96. A followup blood pressure showed 86/52 in early a.m. the , normal heart rate and he continued hypotensive into the avionics systems technician of the . Temperature at 8 a.m. was 100. He was admitted and started on SIRS protocol, covered with antibiotics and given fluids. He spiked a fever to 103.1 4 p.m. yesterday on the . He has had extensive imaging in addition to blood and urine cultures. The cultures have all been negative to date. CT angiography of the chest on the showed increased periaortic lymphadenopathy but this was compared to August 2018. It showed mass-like enlargement of the right obturator internus likely involved with tumor, extensive retroperitoneal and pelvic lymphadenopathy, some question of cystitis. Renal ultrasound was essentially a negative study. Because of the complaint of musculoskeletal and back pain he underwent thoracic and lumbar spine CTs as well as cervical spine CT and lumbar spine MRI. These were all without contrast, but were found no major suspicious findings, no evidence of epidural abscess. Labs through the last 24 hours have showed leukocytosis, anemia, persistently normal renal function, low albumin. Notably sed rate on admission was 93 and a repeat today 128. Serum viscosity has not been repeated. LDH is normal, lactic acid normal. COVID-19 testing negative. Infectious disease consult was called. A history of babesiosis was elicited and serologies are pending, but Dr. Barber's acute, astute clinical eye and assessment is that this may be an allergic reaction either to bendamustine or rituximab. Based on the notes from [place] I suspect bendamustine, so notably the patient uneventfully underwent the first treatment followed by a second treatment over the course of 48 hours having no allergic response but developing allergic response about 24-48 hours after the second day which was accompanied by rituximab. The history of the drug administrations in [place] is confusing the picture but overall with no infectious findings allergic reaction need be considered. At the bedside, Naresh reports being much more comfortable since receiving steroids earlier today. However, when I asked him to lift his arm for exam he is quite stiff and has difficulty doing this. He is not able to localize any one side of pain. He has a history of chronic low back pain from an injury. He denies shortness of breath. He just generally has felt ill he says. PAST MEDICAL HISTORY: Marginal B-cell lymphoma/lymphoplasmacytic lymphoma. Waldenstrom's anemia Obesity. Paroxysmal atrial fibrillation. Chronic hypertension. Chronic low back pain. Atrial fibrillation. PAST SURGICAL HISTORY: Vasectomy. Excisional lymph node removal. ALLERGIES: NO KNOWN DRUG ALLERGIES. HOME MEDICATIONS ON ADMISSION: - amiodarone 200 mg b.i.d. - apixaban 2.5 mg b.i.d. - docusate 100 mg b.i.d. - lisinopril 40 mg daily - diltiazem 180 mg q.24 hours SOCIAL HISTORY: Fairly long smoking history stopped recently, alcohol use in the past. FAMILY HISTORY: Not elicited. REVIEW OF SYSTEMS: In addition to pertinent positives and negatives above, Mr. Leslie denies recent constipation, urinary difficulties, has some light diarrhea, no blood in the stool, no blood in the urine. No history of severe arthralgias but history of chronic low back pain. Denies shortness of breath, cough, difficulty swallowing, abdominal pain, headache, visual disturbance, hearing difficulties, skin rash. FOCUSED PHYSICAL EXAMINATION: Vital Signs: Temperature 98.8, blood pressure 126/61, heart rate 75, respiratory 18, O2 sat 94% room air. The patient is a very robust appearing, tall, overweight gentleman, lying in bed, pleasant, good eye contact, good conversationalist, not detailed as a historian. Respiratory: Clear lungs throughout the lung saxena. No wheezes or rales. Cardiac: S1, S2 , regular to my auscultation today, non-tachycardiac. Abdomen is soft, obese, nontender, nondistended. No hepatosplenomegaly or mass. Extremities: No pitting edema, symmetric. Lymph Nodes: No palpable submandibular, cervical, supraclavicular or axillary adenopathy bilaterally. LABORATORY DATA: Labs currently WBC 16.9, hemoglobin 9.3, hematocrit 29, MCV 79, platelets 302. Lymphocyte percent 7.9, neutrophil percent 86. Sodium 130. Creatinine 1.19. Remainder of electrolytes unremarkable. Glucose 171. Calcium 8.5. Normal liver functions. Albumin 2.0. CRP 14. ESR 128. Blood culture preliminary 24 hour negative. IMPRESSION: 59-year-old man with history of low grade B-cell lymphoma/Waldenstrom's macroglobulinemia, mild hyperviscosity, fairly elevated IgM, apparent relapse recently started on bendamustine/rituximab with fairly rapid onset generalized body pain associated alternately with hypertension, hypotension fever, now subjectively improved, defervesced, stable vital signs. The differential diagnosis includes drug reaction either to rituximab or bendamustine; hyperviscosity reactions but these symptoms do not correlate; combination of infection and drug reaction as the patient's vital signs and temperature did seem to improve just with antibiotics alone. PLAN/RECOMMENDATIONS: 1. I agree with corticosteroids and recommend continuing either Solu-Medrol or switch to dexamethasone 40 mg daily for up to 4 days. A 4 day pulse of dexamethasone may be adequate to entirely quell this drug reaction. 2. Repeat serum viscosity, quantitative immunoglobulins, serum protein electrophoresis, serum free light chains, beta-2 microglobulin, and follow CRP. 3. Defer to infectious disease regarding antibiotic coverage. 4. Dr. Flores returns to clinic tomorrow and will alert him to the patient's hospitalization. Thank you for this consult. YANNICK
[2019-12-22] MEDS: DOCUSATE SODIUM 100 MG CAP PO SCH (09:36)
[2019-12-22] MEDS: AMIODARONE 200 MG TAB (PACERONE) PO SCH (09:36)
[2019-12-22] MEDS: APIXABAN 2.5 MG TAB (ELIQUIS) PO SCH (09:36)
[2019-12-22] MEDS ORDERED: SODIUM CHLORIDE 0.9% INJ 10 ML SYR IV PRN (11:30)
[2019-12-22] MEDS ORDERED: SLF 3 ML SYR IV PRN (11:30)
[2019-12-22 12:00] VITALS: BP 139/76
[2019-12-22] MEDS ORDERED: DOXY-350 PO (12:40)
[2019-12-22 13:05] LABS: BASO % 0.1 % (0.0-1.0); HEMOGLOBIN 8.9 g/dl (13.5-17.5); LYMPH # 0.7 10^3/uL (1.5-5.0); LYMPH % 5.8 % (24.0-44.0); MEAN CORPUSCULAR HEMOGLOBIN 25.3 pg (27.0-33.0); MEAN CORPUSCULAR HGB CONC 31.8 g/dl (32.0-36.5); MEAN CORPUSCULAR VOLUME 79.5 fl (80.0-96.0); MONO # 0.2 10^3/uL (0.0-0.8); MONO % 1.7 % (0.0-5.0); NEUTROPHILS # 10.5 10^3/uL (1.5-8.5); NEUTROPHILS % 91.7 % (36.0-66.0); PLATELET COUNT, AUTOMATED 323 10^3/uL (150-450); RED BLOOD COUNT 3.52 10^6/uL (4.30-6.10); WHITE BLOOD COUNT 11.5 10^3/uL (4.0-10.0)
[2019-12-22] MEDS ORDERED: PERCOCET PO (13:07)
[2019-12-22 13:33] LABS: ALT/SGPT 39 U/L (12-78); BILIRUBIN,TOTAL 0.3 MG/DL (0.2-1.0); BLOOD UREA NITROGEN 15 MG/DL (7-18); CALCIUM LEVEL 8.7 MG/DL (8.8-10.2); CARBON DIOXIDE LEVEL 28 MEQ/L (21-32); CHLORIDE LEVEL 102 MEQ/L (98-107); CREATININE FOR GFR 0.97 MG/DL (0.70-1.30); GLOMERULAR FILTRATION RATE > 60.0 (>49); GLUCOSE, FASTING 233 MG/DL (70-100); POTASSIUM SERUM 4.8 MEQ/L (3.5-5.1); SODIUM LEVEL 134 MEQ/L (136-145); TOTAL PROTEIN 7.8 GM/DL (6.4-8.2)
[2019-12-22] MEDS ORDERED: SLF 3 ML SYR IV SCH (14:00)
--- NOTE | 2019-12-22 15:51 | IPNPDOC ---
Date Seen The patient was seen on 12/22/19. Progress Note Oncology Patient was seen prior to discharge Patient admitted with fever and clinical diagnosis of drug reaction due to recent chemotherapy with bendamustine and rituximab Responding well to steroids Proceed with steroid taper Patient may delay visit in the office from tomorrow instead we'll be happy to see the patient next week Alternate therapy will be discussed OBJECTIVE PHYSICAL EXAMINATION: VITAL SIGNS: Please see below. GENERAL: Alert and oriented 3 no acute distress HEENT: No thrush or tonsillitis CARDIOVASCULAR: Regular rate without murmur RESPIRATORY: Lungs clear bilaterally decreased breath sounds at bases ABDOMINAL: Obese without palpable masses EXTREMITIES: Trace lower extremity edema NEUROLOGICAL: Moving all extremities, gait preserved PSYCHOLOGICAL: Normal mood LABORATORY DATA, IMAGING STUDIES, MICROBIOLOGY: Please see below. 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 Alternate palliative treatment will be discussed. There are many options 25 minutes on care with more than 50% counseling, review of records and discussion with Dr. Wiggins VS, I&O, 24H, Narciso Vital Signs/I&O Vital Signs Date Time Temp Pulse Resp B/P (MAP) Pulse Ox O2 Delivery O2 Flow Rate FiO2 12/22/19 12:00 96.6 65 20 139/76 (97) 95 Nasal Cannula I&O- Last 24 Hours up to 6 AM 12/22/19 06:00 Intake Total 1980 ml Output Total 1475 ml Balance 505 ml Laboratory Data 24H LABS Laboratory Tests 2 12/21/19 15:50: 12/21/19 18:20: Bedside Glucose (Misc Panel) 126H 12/21/19 19:07: Lactate Dehydrogenase 190, Total Protein (PEP) 7.5, Immunoglobulin G 315L, Immunoglobulin A 59.6L, Immunoglobulin M 2560.0H 12/21/19 20:33: Bedside Glucose (Misc Panel) 271H 12/22/19 05:20: Immature Granulocyte % (Auto) 0.8, Neutrophils (%) (Auto) 91.0H, Lymphocytes (%) (Auto) 6.7L, Monocytes (%) (Auto) 1.4, Eosinophils (%) (Auto) 0.0, Basophils (%) (Auto) 0.1, Neutrophils # (Auto) 10.8H, Lymphocytes # (Auto) 0.8L, Monocytes # (Auto) 0.2, Eosinophils # (Auto) 0.0, Basophils # (Auto) 0.0, Nucleated Red Blood Cells % (auto) 0.0, Anion Gap 6L, Glomerular Filtration Rate > 60.0, Calcium Level 8.5L, Magnesium Level 2.3, Total Bilirubin 0.3, Aspartate Amino Transf (AST/SGOT) 14, Alanine Aminotransferase (ALT/SGPT) 38, Alkaline Phosphatase 72, Total Protein 7.9, Albumin 1.9L, Albumin/Globulin Ratio 0.32L 12/22/19 12:53: Immature Granulocyte % (Auto) 0.7, Neutrophils (%) (Auto) 91.7H, Lymphocytes (%) (Auto) 5.8L, Monocytes (%) (Auto) 1.7, Eosinophils (%) (Auto) 0.0, Basophils (%) (Auto) 0.1, Neutrophils # (Auto) 10.5H, Lymphocytes # (Auto) 0.7L, Monocytes # (Auto) 0.2, Eosinophils # (Auto) 0.0, Basophils # (Auto) 0.0, Nucleated Red Blood Cells % (auto) 0.0, Anion Gap 4L, Glomerular Filtration Rate > 60.0, Calcium Level 8.7L, Total Bilirubin 0.3, Aspartate Amino Transf (AST/SGOT) 16, Alanine Aminotransferase (ALT/SGPT) 39, Alkaline Phosphatase 73, Total Protein 7.8, Albumin 2.0L, Albumin/Globulin Ratio 0.34L CBC/BMP Laboratory Tests 12/22/19 05:20 12/22/19 12:53 Microbiology Microbiology 12/20/19 Blood Culture - Preliminary, Resulted No growth after 24 hours . All specim... 12/20/19 - Final, Complete 12/20/19 Blood Culture - Preliminary, Resulted No Growth after 48 hours. All Specime... 12/20/19 Blood Culture - Preliminary, Resulted No Growth after 48 hours. All Specime... MARTHA MAHONEY MD Dec 22, 2019 15:51
--- NOTE | 2019-12-22 20:43 | DS.PDOC ---
Discharge Summary General Date of Admission Dec 20, 2019 at 06:07 Date of Discharge 12/22/19 Discharge Summary PROCEDURES PERFORMED DURING STAY: [None]. ADMITTING DIAGNOSES: Sepsis Hypotension SHAYY Obstructive sleep apnea Obesity Atrial fibrillation Microcytic anemia DISCHARGE DIAGNOSES: Sepsis Hypotension SHAYY Obstructive sleep apnea Obesity Atrial fibrillation Microcytic anemia COMPLICATIONS/CHIEF COMPLAINT: Abdominal Pain, Sirs. HISTORY OF PRESENT ILLNESS: Naresh is a 59-year-old male who presented to the emergency department at [facility] on 12/20/2019 due to about a weeks history of burning pain all over his body. His symptoms began after receiving chemotherapy treatment on 12/10/2019. He was treated with bendamustine and Rituximab on that date. He states he has a history of reaction to Rituximab and was told previously not to take it due to allergic reaction. During the infusion, he began to experience tightness and pain in his neck and some difficulty breathing. He then developed burning pain all over his body. He also noted some abdominal pain which worsened upon standing and improved upon laying down. He also experienced subjective fevers and chills alternating. He states that he would lay in his car because he could adjust the seat to a comfortable position and adjust the heated seat depending on if he was feeling hot or cold. He denied any night sweats, change in weight, nausea, vomiting, cough, upper respiratory infection symptoms, dysuria, diarrhea, or constipation. He states he has pain with any type of movement, especially when putting pressure on a certain area will elicit pain in that area or tightening of the muscles in his legs will elicit pain. He states this feels similar to the reaction he had previously to Rituximab, but at that time years ago when he had this reaction the infusion was stopped and he was given Benadryl. He states at that time his symptoms resolved more quickly. After his infusion on 12/10/2019, he presented to [facility] on 12/11/2019. He states he spent three nights at the hospital. He states he received antibiotics and was treated for new onset atrial fibrillation. He did not receive any antibiotics on discharge. He continued to have worsening symptoms over the course of the week until he presented to [facility] emergency department the other day. He has not had any sick contacts. The patient has a history of lymphoblastic lymphoma/Waldenstrom macroglobulinemia which was initially diagnosed in [place] in November 2015. He received chemotherapy with multiple different regimens and had the best response with bendamustine and Rituximab, based on the notes from our local oncologist practice. He was doing well up until about September 2019 when he was noted to have some progression of the disease and it was decided that he should be restarted on the bendamustine and Rituximab chemotherapy. His treatment on 12/10/2019 was the first treatment he received since establishing care with the oncologist in [place], [place]. The patient also notes that he had [place] spotted fever at one point when he lived in [place] many years ago. He states that this also feels quite similar to that disease process. He believes he was treated with doxycycline at that time and his symptoms did resolve. On admission, the patient was started on vancomycin and meropenem for broad spectrum antibiotic coverage. He experienced a T-max of 103.3 on 12/20/2019. H e states his symptoms have not improved since he was admitted to the hospital. HOSPITAL COURSE: During hospital stay patient was treated for Sepsis Unknown etiology CT abdomen/pelvis showed retro-peritoneal and pelvic adenopathy. Enlarged right obturated internus, likely infiltrated with tumor/adenopathy. Adenopathy is progressed since 09/17/18. CTA chest was unremarkable, no pulmonary emboli. Patient received treatment with broad-spectrum antibiotics. Patient is not presenting with any clear localizing symptoms. Reaction to Rituximab is a possibility, as it can cause a serum sickness reaction which often occurs as a delayed reaction, but if he has received Rituximab multiple times in the past the reaction may occur more acutely to the time of administration. He also may have had a combined allergic reaction acutely and developed a serum sickness reaction in the following days. Imaging at this point has not revealed any clear infection source. Infection of his Piqpuy-W-Hhqp is on the differential, although with such a systemic reaction I would expect peripheral blood cultures to be positive. Currently, the [facility] is not able to draw blood, but if this were cleared with tPA, we could draw a blood culture from the port. Also in the differential is tick borne disease, which he has had in the past and presented similarly. It is not currently tick season, so this is less likely, although he could be having a delayed reaction. CT spine negative for epidural abscess or mets MRI lumbar negative for epidural abscess blood culture negative Patient was not able to tolerate MRI of the neck and thoracic area ESR elevated to 128. Hypotension Resolved after IV fluid Microcytic anemia Most likely secondary to malignancy Check stool for blood We'll start iron supplementation Atrial fibrillation Heart rate is under control Continue apixaban Obesity Complicated care Obstructive sleep apnea CPAP SHAYY Secondary to volume contraction due to dehydration and sepsis Improved DISCHARGE MEDICATIONS: Please see below. ALLERGIES: Please see below. PHYSICAL EXAMINATION ON DISCHARGE: VITAL SIGNS: Please see below. GENERAL: awake, alert, NAD, morbidly obese male HEENT: NCAT, anicteric sclera, CATHY NECK: supple, no JVD CARDIOVASCULAR EXAMINATION: NS1S2, irregularly irregular RESPIRATORY EXAMINATION: CTA b/l, no wheezes/rales/rhonchi ABDOMINAL EXAMINATION: positive bowel sounds x 4, NT, obese Back: no pinpoint tenderness, flexion, extension limited and painfull EXTREMITIES: no cyanosis, clubbing, edema SKIN: warm, no rashes. NEUROLOGICAL EXAMINATION: AAO x 3, no motor/sensory deficits, hands numbness bilaterally LABORATORY DATA: Please see below. IMAGING: CT angiography chest significant for no acute abnormalities detected, mild cardiomegaly. Renal ultrasound, negative renal ultrasound. CT thoracic spine significant for degenerative spondylosis changes, no acute bony abnormality. CT lumbar spine significant for developmental and acquired central calcinosis, central canal stenosis, moderate at L4-5 and mild to moderate L3-4. Mild degenerative disk and facet changes. No acute abnormalities seen. CT cervical spine significant for mild degenerative spondylosis changes. MRI lumbar spine significant for multi level spondylotic changes of the lumbar spine, no definitive acute findings; however, examination limited without the use of axial sequences and post contract sequences. PROGNOSIS: Fair ACTIVITY: [As tolerated]. DIET: Cardiac DISPOSITION: 01 Home, Self-Care. ITEMS TO FOLLOWUP ON ON OUTPATIENT: Follow-up with oncologist and PCP DISCHARGE CONDITION: [Stable]. TIME SPENT ON DISCHARGE: Greater than 20 minutes. Vital Signs/I&Os Vital Signs Date Time Temp Pulse Resp B/P (MAP) Pulse Ox O2 Delivery O2 Flow Rate FiO2 12/22/19 12:00 96.6 65 20 139/76 (97) 95 Nasal Cannula I&O- Last 24 Hours up to 6 AM 12/22/19 06:00 Intake Total 1980 ml Output Total 1475 ml Balance 505 ml Laboratory Data Labs 24H Laboratory Tests 2 12/22/19 05:20: Immature Granulocyte % (Auto) 0.8, Neutrophils (%) (Auto) 91.0H, Lymphocytes (%) (Auto) 6.7L, Monocytes (%) (Auto) 1.4, Eosinophils (%) (Auto) 0.0, Basophils (%) (Auto) 0.1, Neutrophils # (Auto) 10.8H, Lymphocytes # (Auto) 0.8L, Monocytes # (Auto) 0.2, Eosinophils # (Auto) 0.0, Basophils # (Auto) 0.0, Nucleated Red Blood Cells % (auto) 0.0, Anion Gap 6L, Glomerular Filtration Rate > 60.0, Calcium Level 8.5L, Magnesium Level 2.3, Total Bilirubin 0.3, Aspartate Amino Transf (AST/SGOT) 14, Alanine Aminotransferase (ALT/SGPT) 38, Alkaline Phosphatase 72, Total Protein 7.9, Albumin 1.9L, Albumin/Globulin Ratio 0.32L 12/22/19 12:53: Immature Granulocyte % (Auto) 0.7, Neutrophils (%) (Auto) 91.7H, Lymphocytes (%) (Auto) 5.8L, Monocytes (%) (Auto) 1.7, Eosinophils (%) (Auto) 0.0, Basophils (%) (Auto) 0.1, Neutrophils # (Auto) 10.5H, Lymphocytes # (Auto) 0.7L, Monocytes # (Auto) 0.2, Eosinophils # (Auto) 0.0, Basophils # (Auto) 0.0, Nucleated Red Blood Cells % (auto) 0.0, Anion Gap 4L, Glomerular Filtration Rate > 60.0, Calcium Level 8.7L, Total Bilirubin 0.3, Aspartate Amino Transf (AST/SGOT) 16, Alanine Aminotransferase (ALT/SGPT) 39, Alkaline Phosphatase 73, Total Protein 7.8, Albumin 2.0L, Albumin/Globulin Ratio 0.34L CBC/BMP Laboratory Tests 12/22/19 05:20 12/22/19 12:53 Microbiology Microbiology 12/20/19 Blood Culture - Preliminary, Resulted No Growth after 48 hours. All Specime... 12/20/19 - Final, Complete 12/20/19 Blood Culture - Preliminary, Resulted No Growth after 48 hours. All Specime... 12/20/19 Blood Culture - Preliminary, Resulted No Growth after 48 hours. All Specime... Discharge Medications Scheduled Amiodarone HCl (Amiodarone HCl) 200 Mg Tablet, 200 MG PO BID, (Reported) Apixaban (Eliquis) 2.5 Mg Tablet, 2.5 MG PO BID, (Reported) Docusate Sodium (Dok) 100 Mg Capsule, 100 MG PO BID, (Reported) Doxycycline Monohydrate (Doxycycline) 100 Mg Capsule, 1 CAP PO BID Lisinopril (Lisinopril) 40 Mg Tab, 40 MG PO DAILY, (Reported) dilTIAZem HCl (Diltiazem 24Hr Cd) 180 Mg Cap.er.24h, 180 MG PO DAILY, (Reported) Scheduled PRN Oxycodone/Acetaminophen (Oxycodone-Acetaminophen 5-325) 1 Each Tablet, 1 TAB PO Q4HP PRN for MILD/MODERATE PAIN (PS 1-7) Allergies Coded Allergies: No Known Allergies (Unverified , 09/01/18) WILMER DANIEL DO Dec 22, 2019 20:43
[2019-12-22] MEDS ORDERED: FERR32TA PO (20:44)
[2019-12-23] MEDS ORDERED: SODIUM CHLORIDE 0.9% INJ 10 ML SYR IV SCH (09:00)
[2019-12-23 12:50] LABS: ALBUMIN % 33.2 % (55.8-66.1); ALPHA-1-GLOBULIN % 8.1 % (2.9-4.9); ALPHA-2-GLOBULINS % 14.3 % (7.1-11.8)
[2019-12-23 12:51] LABS: ALBUMIN 2.49 GM/DL (3.29-5.55); ALPHA-1-GLOBULINS 0.61 GM/DL (0.17-0.41); ALPHA-2-GLOBULINS 1.07 GM/DL (0.42-0.99); BETA-1-GLOBULINS 0.29 GM/DL (0.28-0.60); BETA-1-GLOBULINS % 3.9 % (4.7-7.2); BETA-2-GLOBULINS 0.31 GM/DL (0.19-0.55); BETA-2-GLOBULINS % 4.1 % (3.2-6.5); GAMMA GLOBULIN % 36.4 % (11.1-18.8); GAMMA GLOBULINS 2.73 GM/DL (0.65-1.58)
[2019-12-24 08:06] LABS: BETA 2 MICROGLOBULIN 3.6 mg/L (0.6-2.4); FREE KAPPA LIGHT CHAINS SERUM 31.1 mg/L (3.3-19.4); FREE LAMBDA LIGHT CHAINS SERUM 152.8 mg/L (5.7-26.3); KAPPA/LAMBDA RATIO SERUM 0.2 (0.26-1.65); SERUM VISCOSITY 2.3 rel.saline (1.6-1.9)
[2019-12-25 00:07] LABS: BABESIOSIS LEVEL IGG <1:10 (Neg:<1:10); BABESIOSIS LEVEL IGM <1:10 (Neg:<1:10); E CHAFFEENSIS IgG TITER Negative (Neg:<1:64); E CHAFFEENSIS IgM TITER Negative (Neg:<1:20); HUMAN GRANULCYTIC EHRLIC IgG Negative (Neg:<1:64); HUMAN GRANULCYTIC EHRLIC IgM Negative (Neg:<1:20); IgG P18 AB Absent (.); IgG P23 AB Absent (.); IgG P28 AB Absent (.); IgG P30 AB Absent (.); IgG P39 AB Absent (.); IgG P41 AB Absent (.); IgG P45 AB Absent (.); IgG P66 AB Absent (.); IgG P93 AB Absent (.); IgM P23 AB Absent (.); IgM P39 AB Absent (.); IgM P41 AB Absent (.); LYME IgG WB INTERPRETATION Negative (.); LYME IgM WB INTERPRETATION Negative (.); ROCKY MTN SPOTTED FEVER IgM 0.19 index (0.00-0.89)
== END 2019-12-22 14:57 | disposition home or self-care (01) | DRG 720 ==
LOC: M ED 02:59 → M ED INP 06:07 → ENRESERV 07:00 → M PCU 07:45
PROVIDERS: ADMIT Internal Medicine; ATTEND Internal Medicine
DX: A41.9 Sepsis, unspecified organism (principal); N17.9 Acute kidney failure, unspecified; C83.53 Lymphoblastic (diffuse) lymphoma, intra-abdominal lymph nodes; Z68.42 Body mass index [BMI] 45.0-49.9, adult; I48.0 Paroxysmal atrial fibrillation; C88.0 Waldenstrom macroglobulinemia; E66.9 Obesity, unspecified; G47.33 Obstructive sleep apnea (adult) (pediatric); D50.9 Iron deficiency anemia, unspecified; Z79.899 Other long term (current) drug therapy; Z87.891 Personal history of nicotine dependence; I10 Essential (primary) hypertension; Z79.01 Long term (current) use of anticoagulants

== ENCOUNTER → 2020-08-02 | Outpatient (CLI) | payer OTHER ==
[~2020-08-02] MED LIST changes: +AMIO200T3 PO; +DILT180C70 PO; +DOK1CAP7 PO; +DOXY-350 PO; +ELIQ2.5T PO; +FERR32TA PO; +GASTROGRAFIN SOLUTION 30ML (Q9963) As Ordered ONE; +ISOVUE-370 76% 100ML VIAL As Ordered ONE; +PERCOCET PO
--- NOTE | 2020-08-02 15:47 | REPVR ---
PROCEDURE INFORMATION: Exam: CT Neck With Contrast Exam date and time: 08/02/2020 1:42 PM Age: 60 years old Clinical indication: Condition or disease; Cancer; Other: Lymphoma; Additional info: Lymphoma non hodgkins TECHNIQUE: Imaging protocol: Computed tomography images of the neck with intravenous contrast. Radiation optimization: All CT scans at this facility use at least one of these dose optimization techniques: automated exposure control; mA and/or kV adjustment per patient size (includes targeted exams where dose is matched to clinical indication); or iterative reconstruction. Contrast material: ISOVUE 370; Contrast volume: 100 ml; Contrast route: INTRAVENOUS (IV); COMPARISON: No relevant prior studies available. FINDINGS: Nasopharynx: Unremarkable. Oropharynx: Unremarkable. No significant tonsillar enlargement. Hypopharynx: Unremarkable. Larynx: Unremarkable. Normal epiglottis. Retropharyngeal space: Unremarkable. Submandibular/Parotid glands: Normal. Glands are normal in size. Thyroid: The thyroid gland is normal. Lymph nodes: There are numerous prominent but non-pathologic lymph nodes in the neck. There are no nodes of pathologic dimensions as described in the pelvis on PET CT of 12/07/2019. Trachea: Visualized trachea is unremarkable. Lungs: The visualized portions of the lung apices are normal. Bones/joints: The spine demonstrates mild degenerative changes at multiple levels. Soft tissues: Unremarkable. No significant soft tissue swelling. IMPRESSION: There are numerous prominent but non-pathologic lymph nodes in the neck. There are no nodes of pathologic dimensions as described in the pelvis on PET CT of 12/07/2019. Electronically signed by: Matias Hansen On 08/02/2020 15:46:38 PM
--- NOTE | 2020-08-02 16:47 | REP ---
INDICATION: LYMPHOMA NON HODGKINS. COMPARISON: Comparison CT study December 20, 2019.. TECHNIQUE: The contrast enhancement dose is 100 mL of intravenous Isovue 370. Helical scanning is acquired and 3 mm axial images are re-formatted. Coronal and sagittal MPR images are generated. FINDINGS: There is no evidence of pleural or pericardial effusion. No hilar or mediastinal mass or adenopathy is observed. No axillary or supraclavicular adenopathy is appreciated. There is a left-sided Xlgeep-D-Akcs catheter. A splenule is noted in the left upper quadrant of the abdomen unchanged. No infiltrate, lung mass, or significant pulmonary nodule is appreciated. No endobronchial lesion is seen. Bone window settings show no bony destructive lesion. IMPRESSION: No active cardiopulmonary disease. No evidence of mass or adenopathy. <Electronically signed by Randolph Rhoades > 08/02/20 [id number]
--- NOTE | 2020-08-02 16:55 | REP ---
INDICATION: LYMPHOMA NON HODGKINS. COMPARISON: Comparison CT study of the abdomen and pelvis is from December 20, 2019.. TECHNIQUE: Helical scanning is acquired and 3 mm axial images re-formatted. Coronal and sagittal MPR images are generated. The CT contrast enhancement dose is 100 mL of intravenous Isovue 370. FINDINGS: An accessory splenule is noted in the left upper quadrant. The spleen is not felt to be enlarged. No focal splenic lesion is seen. The liver is normal in size and homogeneous in texture. No abnormality is noted in the gallbladder. The pancreas is unremarkable. The kidneys enhance symmetrically and are morphologically intact. Small and large intestinal bowel loops are unremarkable in the abdomen and pelvis. There is a small periumbilical ventral hernia trans [place] a small quantity of omental fat. No other abdominal wall defect is seen. There are 1 or 2 normal-sized retrocrural lymph nodes on the right. There is mild periaortic lymphadenopathy. The largest left periaortic node is seen just below the renal vascular pedicle. This measures 3.8 cm in craniocaudal span by 1.8 cm right to left by 1.7 cm anterior to posterior. There are several small pericaval lymph nodes. The largest of these is at the iliac vein confluence on the right measuring 0.8 x 1.6 by 2.4 cm. There is right external iliac lymphadenopathy. On the right there is a external iliac lymph node measuring 3.6 x 2.5 x 3.9 cm. There is a 2nd enlarged right external iliac lymph node measuring 2.1 by 3.1 by 2.5 cm. There is an infiltrative lesion in the right pelvic sidewall which bows medially producing mild compression of the prostate. this is not separable from the musculature but appears to measure approximately 3.9 cm in medial to lateral span. 2 right internal iliac lymph nodes are seen to be enlarged as well. There are clips in the right inguinal soft tissues. There is a right inguinal lymph node adjacent to the clips measuring 1.3 cm in short axis dimension. IMPRESSION: There is moderate right external and internal iliac lymphadenopathy and there is an infiltrative mass effect in the right pelvic sidewall consistent with lymphomatous disease. There are a few mildly enlarged periaortic and aortocaval lymph nodes in the retroperitoneum. <Electronically signed by Randolph Rhoades > 08/02/20 [id number]
== END ==
LOC: M RAD 12:04
PROVIDERS: ATTEND Specialist
DX: C85.90 Non-Hodgkin lymphoma, unspecified, unspecified site (principal)
CPT/HCPCS: 70491; 71260; 74177; Q9963; Q9967

== ENCOUNTER → 2021-02-02 | Outpatient (CLI) | payer OTHER ==
[~2021-02-02] MED LIST changes: +ACYC1TAB PO; -ACYC400T PO; +CYCL1CAP2 PO; +DEXA4TA PO; +DILT180C70; -LISI40TA PO; +LISI40TA4 PO
--- NOTE | 2021-02-02 18:29 | REPVR ---
PROCEDURE INFORMATION: Exam: CT Neck With Contrast Exam date and time: 02/02/2021 5:34 PM Age: 61 years old Clinical indication: Condition or disease; Cancer; Other: Lymphoma TECHNIQUE: Imaging protocol: Computed tomography images of the neck with contrast. Radiation optimization: All CT scans at this facility use at least one of these dose optimization techniques: automated exposure control; mA and/or kV adjustment per patient size (includes targeted exams where dose is matched to clinical indication); or iterative reconstruction. Contrast material: ISOVUE 370; Contrast volume: 100 ml; Contrast route: INTRAVENOUS (IV); COMPARISON: CT Neck with contrast 08/02/2020 1:52 PM FINDINGS: Nasopharynx: Unremarkable. Oropharynx: Unremarkable. No significant tonsillar enlargement. Hypopharynx: Unremarkable. Larynx: Unremarkable. Normal epiglottis. Retropharyngeal space: Unremarkable. Submandibular/Parotid glands: Normal. Glands are normal in size. Thyroid: Normal. No enlarged or calcified nodules. Lymph nodes: Unremarkable. No lymphadenopathy. Trachea: Visualized trachea is unremarkable. Lungs: Unremarkable as visualized. Bones/joints: The cervical spine demonstrates mild degenerative changes. Soft tissues: Unremarkable. No significant soft tissue swelling. IMPRESSION: No acute findings. Electronically signed by: Osmar Delaney On 02/02/2021 18:29:02 PM
--- NOTE | 2021-02-05 02:58 | REP ---
INDICATION: LYMPHOMA COMPARISON: 08/02/2020 TECHNIQUE: Axial contrast enhanced images from the thoracic inlet to the upper abdomen with 100 ml Isovue 370 intravenous contrast material followed by CT of the abdomen and pelvis. Coronal and sagittal reformations obtained. This CT examination was performed using the following dose reduction techniques: Automated exposure control, adjustment of mA and/or kv according to the patient's size, and use of iterative reconstruction technique. FINDINGS: The bilateral lung saxena are relatively symmetric and well aerated. No acute consolidation, obvious nodule or mass lesion. Mild bibasilar fibroatelectatic changes are nonspecific and partially chronic. No effusion. No pneumothorax. Tracheobronchial tree is patent. Mediastinum demonstrates normal thoracic aorta, pulmonary vasculature, and heart/pericardium. No axillary, hilar, or mediastinal adenopathy. Surrounding musculoskeletal structures intact and without acute osseous abnormality. IMPRESSION: Normal contrast-enhanced chest CT. No acute mediastinal or pleuroparenchymal process. Specifically, no evidence for adenopathy, effusion or mass. <Electronically signed by Anthony Hanson > 02/05/21 [id number]
--- NOTE | 2021-02-05 03:07 | REP ---
INDICATION: LYMPHOMA. COMPARISON: 08/02/2020 TECHNIQUE: Axial contrast-enhanced images from the lung bases to the pubic symphysis using oral and 100 cc Isovue 370 intravenous contrast material. Delayed images of the abdomen along with coronal and sagittal reformations obtained. This CT examination was performed using the following dose reduction techniques: Automated exposure control, adjustment of mA and/or kv according to the patient's size, and the use of iterative reconstruction technique. FINDINGS: Retroperitoneal including para-aortic and paracaval adenopathy as well as significant pelvic adenopathy primarily noted along the right hemipelvis is increased from prior examination. Most prominent increased lymph nodes are noted along the right pelvic sidewall and form conglomerate mass which is difficult to quantify. As example, a right iliac chain lymph node currently measures 3.6 cm maximal diameter (series 305; image 101) and previously measured 3.0 cm maximal diameter. Liver is enlarged without focal hepatic lesion identified. The spleen, pancreas, gallbladder, bilateral adrenal glands and kidneys are essentially normal. Few small bilateral nonobstructing nephroliths measure up to 2 mm. The enteric system including stomach, small, and large bowel appears normal. No evidence for obstruction or acute inflammatory process. Normal terminal ileum and appendix are identified in the right lower quadrant. 4 cm fat containing periumbilical hernia again identified. Pelvis demonstrates collapsed bladder with subtle surrounding stranding and age-appropriate prostate/seminal vesicles. No ascites. No free air. Abdominal aorta and vasculature appear normal. Musculoskeletal structures are intact and without acute osseous abnormality. IMPRESSION: 1. Retroperitoneal and primarily right pelvic adenopathy again noted and slightly increased compared to prior examination. 2. No ascites. 3. Chronic nonacute findings as noted above. <Electronically signed by Anthony Hanson > 02/05/21 [id number]
== END ==
LOC: M RAD 15:12
PROVIDERS: ATTEND Specialist
DX: C85.90 Non-Hodgkin lymphoma, unspecified, unspecified site (principal)
CPT/HCPCS: 70491; 71260; 74177; Q9963; Q9967

== ENCOUNTER 2021-02-22 11:30 | Emergency (ER) | payer OTHER ==
[~2021-02-22] VITALS: Ht 182.9 cm; Wt 145.4 kg
[~2021-02-22 11:30] MED LIST changes: +AUGM875T28 PO; +ELIQ5TAB PO; -GASTROGRAFIN SOLUTION 30ML (Q9963) As Ordered ONE; -ISOVUE-370 76% 100ML VIAL As Ordered ONE
[2021-02-22] MEDS ORDERED: SODIUM CHLORIDE 0.9% INJ 10 ML SYR IV PRN (13:20)
[2021-02-22 14:12] VITALS: BP 139/64
== END 2021-02-22 14:37 | disposition home or self-care (01) ==
LOC: M ED 11:30
DX: I10 Essential (primary) hypertension (principal); E66.9 Obesity, unspecified; T45.1X5A Adverse effect of antineoplastic and immunosuppressive drugs, initial encounter; I48.91 Unspecified atrial fibrillation; Z79.01 Long term (current) use of anticoagulants; Z79.899 Other long term (current) drug therapy; Z88.8 Allergy status to other drugs, medicaments and biological substances
CPT/HCPCS: 99284; J1642

== ENCOUNTER → 2021-04-23 | Outpatient (CLI) | payer OTHER ==
[~2021-04-23] MED LIST changes: +DOK1CAP4 PO; -DOK1CAP7 PO; +ECOT81TA5 PO
== END ==
LOC: M LABSMTC 09:35
PROVIDERS: ATTEND Anesthesiology
DX: Z01.812 Encounter for preprocedural laboratory examination (principal)

== ENCOUNTER 2021-04-27 07:07 | Day surgery (SDC) | payer OTHER ==
[~2021-04-27] VITALS: Ht 182.9 cm; Wt 145.1 kg
[~2021-04-27 07:07] MED LIST changes: +CIPROFLOXACIN 400 MG in IV 1 EA IV ONE; +metroNIDAZOLE 500 MG in IV 1 EA IV ONE
[2021-04-27] MEDS ORDERED: fentaNYL 100 MCG/2 ML INJECTION (J3010) As Ordered ONE ×3 (07:47→11:36)
[2021-04-27] MEDS ORDERED: MIDAZOLAM INJ 2MG/2ML VIAL (J2250 PER 1MG) As Ordered ONE (07:47)
[2021-04-27] MEDS ORDERED: LIDOCAINE 2% 100MG/5ML SDV (FOR ANES.) As Ordered ONE (07:48)
[2021-04-27] MEDS ORDERED: propofoL 200 MG/20 ML VIAL As Ordered ONE ×4 (07:48→10:51)
[2021-04-27] MEDS ORDERED: BUPIVACAINE LIPOSOME/PF 1.3% 20ML VIAL (13.3MG/ML)(EXPAREL)(C9290 PER1MG) As Ordered ONE (07:55)
[2021-04-27] MEDS ORDERED: BUPIVACAINE HCL 0.25% 10ML VIAL As Ordered ONE (07:55)
[2021-04-27 08:05] LABS: HEMATOCRIT 30.3 % (42.0-52.0); HEMOGLOBIN 8.9 g/dl (13.5-17.5); MEAN CORPUSCULAR HEMOGLOBIN 23.9 pg (27.0-33.0); MEAN CORPUSCULAR HGB CONC 29.4 g/dl (32.0-36.5); MEAN CORPUSCULAR VOLUME 81.5 fl (80.0-96.0); PLATELET COUNT, AUTOMATED 279 10^3/uL (150-450); RED BLOOD COUNT 3.72 10^6/uL (4.30-6.10); WHITE BLOOD COUNT 8.9 10^3/uL (4.0-10.0)
[2021-04-27 08:16] LABS: INR 1.15; PROTHROMBIN TIME 15.1 SECONDS (12.7-14.5)
[2021-04-27 08:17] LABS: PARTIAL THROMBOPLASTIN TIME 35.3 SECONDS (25.9-37.0)
[2021-04-27] MEDS ORDERED: GLYCOPYRROLATE INJ 0.2 MG/ML 2 ML VIAL As Ordered ONE (09:19)
[2021-04-27] MEDS ORDERED: CHLOROPROCAINE PRES. FREE 3% 20ML VIAL As Ordered ONE (09:26)
[2021-04-27] MEDS ORDERED: ACETAMINOPHEN 1000MG 100ML IV BTL (OFIRMEV) (J0131 PER 10MG) As Ordered ONE (09:49)
[2021-04-27] MEDS ORDERED: ePHEDrine SULFATE 25 MG/5 ML(5MG/ML) SYRINGE As Ordered ONE (10:01)
[2021-04-27] MEDS ORDERED: hydrALAZINE 20MG/ML 1ML VIAL (J0360 PER 20MG) As Ordered ONE (10:21)
[2021-04-27] MEDS ORDERED: KETAMINE HCL 200 MG/20 ML VIAL As Ordered ONE (10:37)
[2021-04-27] MEDS ORDERED: LABETALOL 100MG/20ML VIAL As Ordered ONE (10:43)
[2021-04-27] MEDS: fentaNYL 100 MCG/2 ML INJECTION (J3010) IV PRN ×3 (11:35→11:49)
[2021-04-27] MEDS ORDERED: LR 1,000 ML IV SCH (11:40)
[2021-04-27] MEDS ORDERED: ONDANSETRON 4MG/2ML VIAL IV PRN (11:40)
[2021-04-27] MEDS ORDERED: METOCLOPRAMIDE INJ 10MG/2ML VIAL (J2765 PER 1) IV PRN (11:40)
[2021-04-27] MEDS ORDERED: KETOROLAC 60MG 2ML VIAL IV PRN (11:40)
[2021-04-27] MEDS ORDERED: oxyCODONE 5MG TAB PO PRN (11:40)
[2021-04-27] MEDS ORDERED: PERCOCET 5MG/325MG TAB PO PRN (11:40)
--- NOTE | 2021-04-27 11:50 | ROOPDOC ---
[facility] Report Of Operation Report of Operation DATE OF PROCEDURE: 04/27/21 PREPROCEDURE DIAGNOSES: Bleeding hemorrhoids. POSTPROCEDURE DIAGNOSES: Circumferential enlarged and irritated mixed external and internal hemorrhoids. PROCEDURE PERFORMED: Excisional hemorrhoidectomy x3. SURGEON: Lito Avery MD ANESTHESIA: Spinal anesthesia with local long-acting anesthesia using a mixture of Exparel and 1 4% Marcaine. ESTIMATED BLOOD LOSS: Approximately 40 mL. COMPLICATIONS: None. REMARKS: Patient is a 61-year-old male used to be he was on anticoagulation for atrial fibrillation was admitted for profuse bleeding at an outside institution and work-up including EGD and colonoscopy was found to be bleeding mainly from his enlarged hemorrhoids. He was then sent by his oncologist to pr for management of his hemorrhoids. For the meantime he was taken off his anticoagulation. FINDINGS: Circumferential redundant and engorged external hemorrhoids as well as grade 3 internal hemorrhoids with thickening and irritation, contact bleeding of the overlying mucosa SPECIMENS REMOVED: Hemorrhoids PROCEDURE NOTE: Excisional hemorrhoidectomy performed at the 3, 7 and 11:00 hemorrhoidal piles with 2 cm mucosal bridges preserved. DESCRIPTION OF PROCEDURE: [ Patient received a dose of ciprofloxacin 400 mg IV and metronidazole 500 mg IV for wound prophylaxis. He was brought to the operating room. He was positioned for spinal anesthesia. He was then placed in a prone jackknife position with his pressure points padded. The buttocks were taped apart with 3 inch nylon tapes. The anal verge and perianal area was then prepped and draped in the usual sterile fashion. Insert timeout He was placed on a exaggerated Trendelenburg position to better view the anal verge. He has evidence for engorged external hemorrhoids with redundant skin as well as extension of the internal hemorrhoids with bulky, irritated overlying mucosa of the internal hemorrhoids and contact bleeding. He seems to have a lax sphincter tone. The location of the 3 hemorrhoidal piles were marked making sure we have to centimeter anal mucosal bridge in between the areas where we are going to incise. I used local anesthetic for perianal block. We used a mixture of Exparel and 1 4% Marcaine. The anal retractors was placed and positioned and the overlying external skin fold up to exteriorize the hemorrhoidal pedicles. I started with the hemorrhoidal pile at the 3 o'clock position or the left lateral quadrant. The base of the hemorrhoidal pile was grabbed with Aliss forceps to raise it from the underlying sphincter muscles. A cruciate incision was then created using the pencil tip monopolar cautery from the perianal skin to the base of the hemorrhoidal pedicle try to conserve the anoderm overlying the hemorrhoidal pile.. The hemorrhoidal pile was then dissected free and divided from the sphincter muscles using the focus Harmonic scalpel and divided down to the base. Further hemostasis performed with both Bovie cautery and the harmonic scalpel. Following the hemostasis, the overlying mucosa and the perianal skin was closed with a running locking suture using 3-0 Vicryl stitch and going subcuticular once we are at the skin level. This was similarly performed to the hemorrhoidal pile at the right anterior and right posterior lateral quadrant. There was some difficulty with maintaining good visualization towards the end of the right posterior lateral quadrant thus I chose to close the mucosa and anoderm with interrupted mattress sutures using a 3-0 Vicryl. Once all 3 hemorrhoidal piles were removed, the anal canal was examined for proper hemostasis. I then left a folded up Gelfoam in the anal canal cover this with Vaseline gauze, cotton plugs held in place with a po stsurgical mesh underwear. Due to patient's body habitus, difficulty in tolerating the prone jackknife position, the procedure was slightly extended and moderately difficult though altogether patient did well. He was promptly awakened, placed back into the stretcher and moved to the recovery room in stable condition. LITO AVERY MD Apr 27, 2021 11:50
[2021-04-27 12:50] VITALS: BP 115/82
== END 2021-04-27 12:54 | disposition home or self-care (01) ==
LOC: M SDC 07:07
PROVIDERS: ATTEND Surgery
DX: K64.8 Other hemorrhoids (principal); I10 Essential (primary) hypertension; G47.33 Obstructive sleep apnea (adult) (pediatric); C85.91 Non-Hodgkin lymphoma, unspecified, lymph nodes of head, face, and neck; Z88.8 Allergy status to other drugs, medicaments and biological substances; Z79.899 Other long term (current) drug therapy; F17.218 Nicotine dependence, cigarettes, with other nicotine-induced disorders
CPT/HCPCS: 36415; 46260; 85027; 85610; 85730; 88304; C9290; J0131; J0360; J0744; J2250; J2400; J3010

== ENCOUNTER 2021-04-30 18:12 | Emergency (ER) | payer OTHER ==
[~2021-04-30] VITALS: Ht 182.9 cm; Wt 148.7 kg
[~2021-04-30 18:12] MED LIST changes: -CIPROFLOXACIN 400 MG in IV 1 EA IV ONE; -metroNIDAZOLE 500 MG in IV 1 EA IV ONE
[2021-04-30] MEDS ORDERED: HYDR-3713 (18:28)
[2021-04-30] MEDS ORDERED: MORPHINE 4 MG/ML 1ML VIAL/SYRINGE (J2270) IV ONE ×2 (19:10→20:30)
[2021-04-30] MEDS ORDERED: ONDANSETRON 4MG/2ML VIAL IV ONE (19:10)
[2021-04-30] MEDS ORDERED: NS 1,000 ML IV ONE (19:25)
[2021-04-30 19:53] LABS: BASO # 0.1 10^3/uL (0.0-0.2); BASO % 0.6 % (0.0-1.0); EOS # 0.6 10^3/uL (0.0-0.5); EOS % 4.5 % (0.0-3.0); HEMATOCRIT 31.6 % (42.0-52.0); HEMOGLOBIN 9.5 g/dl (13.5-17.5); LYMPH # 1.5 10^3/uL (1.5-5.0); MEAN CORPUSCULAR HEMOGLOBIN 24.6 pg (27.0-33.0); MEAN CORPUSCULAR HGB CONC 30.1 g/dl (32.0-36.5); MEAN CORPUSCULAR VOLUME 81.9 fl (80.0-96.0); MONO # 1.8 10^3/uL (0.0-0.8); NEUTROPHILS # 8.5 10^3/uL (1.5-8.5); NEUTROPHILS % 68.3 % (36.0-66.0); PLATELET COUNT, AUTOMATED 287 10^3/uL (150-450); RED BLOOD COUNT 3.86 10^6/uL (4.30-6.10)
[2021-04-30 20:01] LABS: WHITE BLOOD COUNT 12.5 10^3/uL (4.0-10.0)
--- NOTE | 2021-04-30 20:49 | REPVR ---
PROCEDURE INFORMATION: Exam: XR Abdomen Exam date and time: 04/30/2021 8:08 PM Age: 61 years old Clinical indication: Abdominal pain; Acute; Additional info: No bm x 3 days, recent hemorrhoidectomy TECHNIQUE: Imaging protocol: XR of the abdomen. Views: Frontal supine view of the abdomen. 1 View. COMPARISON: CT ABD PELVIS WITH CONTRAST 02/02/2021 5:24 PM FINDINGS: Gastrointestinal tract: Non-obstructive bowel gas pattern. Bones/joints: No acute osseus lesions or fractures. Soft tissues: Unremarkable. IMPRESSION: Nonobstructive bowel gas pattern. Electronically signed by: Naresh Lloyd On 04/30/2021 20:49:36 PM
[2021-04-30] MEDS ORDERED: LIDOCAINE 2% 5ML JELLY UROJET TOP ONE (21:55)
[2021-04-30 22:22] LABS: APPEARANCE, URINE CLEAR (CLEAR); BACTERIA, URINE AUTO NEGATIVE (NEGATIVE); BILIRUBIN, URINE AUTO NEGATIVE (NEGATIVE); BLOOD, URINE BLOOD NEGATIVE (NEGATIVE); COLOR, URINE YELLOW (YELLOW); GLUCOSE, URINE (UA) AUTO NEGATIVE (NEGATIVE); KETONE, URINE AUTO NEGATIVE (NEGATIVE); LEUKOCYTE ESTERASE, URINE AUTO NEGATIVE (NEGATIVE); MUCUS, URINE SMALL (NEGATIVE); NITRITE, URINE AUTO NEGATIVE (NEGATIVE); PROTEIN, URINE AUTO NEGATIVE (NEGATIVE); RBC, URINE AUTO 4 /HPF (0-3); SPECIFIC GRAVITY URINE AUTO 1.017 (1.002-1.035); SQUAMOUS EPITHELIAL CELL UR AU 0 /HPF (0-6); UROBILINOGEN, URINE AUTO 0.2 mg/dL (0.0-2.0); WBC, URINE AUTO 0 /HPF (0-3)
[2021-04-30 22:47] VITALS: BP 146/74
[2021-04-30] MEDS ORDERED: KETOROLAC 30 MG/ML 1ML VIAL IV ONE (23:15)
[2021-04-30] MEDS ORDERED: KETO10TAB PO (23:16)
== END 2021-04-30 23:53 | disposition home or self-care (01) ==
LOC: M ED 18:12
DX: R33.9 Retention of urine, unspecified (principal); G89.18 Other acute postprocedural pain; K62.89 Other specified diseases of anus and rectum; F17.200 Nicotine dependence, unspecified, uncomplicated; I10 Essential (primary) hypertension; Z79.82 Long term (current) use of aspirin; Z79.899 Other long term (current) drug therapy; Z88.8 Allergy status to other drugs, medicaments and biological substances
CPT/HCPCS: 51702; 74018; 80047; 81001; 85025; 87086; 96361; 96374; 96375; 99284; J1885; J2270; J2405

== ENCOUNTER → 2022-01-29 | Outpatient (CLI) | payer MEDICARE, OTHER ==
[~2022-01-29] MED LIST changes: -AMIO200T3 PO; +AMIO200T49 PO; +GABA-283 PO; +GASTROGRAFIN SOLUTION 30ML (Q9963) As Ordered ONE; +HYDR-3713; +HYDR-3713 PO; +HYDR-4429 PO; +ISOVUE-370 76% 100ML VIAL As Ordered ONE; +KETO10TAB PO; +METF-817 PO; +ONDA8TAB8 PO; +PROC5TAB57 PO
== END ==
LOC: M RAD 07:35
PROVIDERS: ATTEND Internal Medicine Hematology & Oncology
DX: C83.00 Small cell B-cell lymphoma, unspecified site (principal)
CPT/HCPCS: 71260; 74177; Q9963; Q9967

== ENCOUNTER → 2022-12-17 | Outpatient (CLI) | payer OTHER ==
[~2022-12-17] VITALS: Ht 182.9 cm; Wt 155.4 kg
[~2022-12-17] MED LIST changes: +ACAL100T PO; +CALQ100C PO; +CEPH500C; -DOXY-350 PO; +DOXY-444 PO; +FURO40TA2 PO; +GABA-1171 PO; -GASTROGRAFIN SOLUTION 30ML (Q9963) As Ordered ONE; +HYDR-4571 PO; -ISOVUE-370 76% 100ML VIAL As Ordered ONE; +POTA10CA33 PO; +PROBCAP14 PO; +RA T500C2 PO
[2022-12-17 10:59] VITALS: BP 133/67
== END ==
LOC: M PAL 10:55
PROVIDERS: ATTEND Nurse Practitioner Adult Health
DX: C85.10 Unspecified B-cell lymphoma, unspecified site (principal); C83.50 Lymphoblastic (diffuse) lymphoma, unspecified site; D64.9 Anemia, unspecified; M79.18 Myalgia, other site; G89.3 Neoplasm related pain (acute) (chronic); E66.9 Obesity, unspecified; F17.200 Nicotine dependence, unspecified, uncomplicated; I10 Essential (primary) hypertension; Z51.5 Encounter for palliative care; Z79.891 Long term (current) use of opiate analgesic; Z79.899 Other long term (current) drug therapy; Z79.82 Long term (current) use of aspirin; Z88.8 Allergy status to other drugs, medicaments and biological substances

== ENCOUNTER → 2023-01-23 | Outpatient (CLI) | payer OTHER ==
[~2023-01-23] MED LIST changes: +DILT120C89; +ELIQ5TAB; +GASTROGRAFIN SOLUTION 30ML As Ordered ONE; +ISOVUE-370 76% 100ML VIAL As Ordered ONE; +LISI40TA4
== END ==
LOC: M RAD 07:07
PROVIDERS: ATTEND Specialist
DX: C88.0 Waldenstrom macroglobulinemia (principal); C85.86 Other specified types of non-Hodgkin lymphoma, intrapelvic lymph nodes
CPT/HCPCS: 74177; Q9963; Q9967

== ENCOUNTER → 2023-02-19 | Outpatient (CLI) | payer OTHER ==
[~2023-02-19] VITALS: Ht 182.9 cm; Wt 144.2 kg
[~2023-02-19] MED LIST changes: -GASTROGRAFIN SOLUTION 30ML As Ordered ONE; -ISOVUE-370 76% 100ML VIAL As Ordered ONE; +MECL-86; -POTA10CA33 PO; +POTA10CA60 PO
[2023-02-19 08:21] VITALS: BP 126/77; O2SAT 96
== END ==
LOC: M PAL 08:06
PROVIDERS: ATTEND Nurse Practitioner Adult Health
DX: C85.10 Unspecified B-cell lymphoma, unspecified site (principal); C83.50 Lymphoblastic (diffuse) lymphoma, unspecified site; D64.9 Anemia, unspecified; M79.18 Myalgia, other site; G89.3 Neoplasm related pain (acute) (chronic); E66.9 Obesity, unspecified; N40.0 Benign prostatic hyperplasia without lower urinary tract symptoms; F17.200 Nicotine dependence, unspecified, uncomplicated; I10 Essential (primary) hypertension; Z51.5 Encounter for palliative care; Z79.891 Long term (current) use of opiate analgesic; Z79.899 Other long term (current) drug therapy; Z79.82 Long term (current) use of aspirin; Z88.8 Allergy status to other drugs, medicaments and biological substances

== ENCOUNTER → 2023-04-02 | Outpatient (CLI) | payer OTHER ==
[~2023-04-02] VITALS: Ht 182.9 cm; Wt 141.7 kg
[~2023-04-02] MED LIST changes: -DILT120C89; +DILT120C89 PO; -ELIQ5TAB; -GABA-283 PO; +GABA-284 PO; -LISI40TA4; -MECL-86; +MECL-86 PO
[2023-04-02 08:15] VITALS: BP 114/65; TEMP 96.4; O2SAT 98
== END ==
LOC: M PAL 08:00
PROVIDERS: ATTEND Nurse Practitioner Adult Health
DX: C85.10 Unspecified B-cell lymphoma, unspecified site (principal); C83.50 Lymphoblastic (diffuse) lymphoma, unspecified site; I48.91 Unspecified atrial fibrillation; M79.18 Myalgia, other site; G89.3 Neoplasm related pain (acute) (chronic); K59.00 Constipation, unspecified; F17.200 Nicotine dependence, unspecified, uncomplicated; R06.02 Shortness of breath; Z79.899 Other long term (current) drug therapy; R60.0 Localized edema; R10.9 Unspecified abdominal pain; Z51.5 Encounter for palliative care; Z79.891 Long term (current) use of opiate analgesic; Z79.82 Long term (current) use of aspirin; Z88.8 Allergy status to other drugs, medicaments and biological substances; Z79.01 Long term (current) use of anticoagulants

== ENCOUNTER → 2023-04-30 | Outpatient (CLI) | payer OTHER ==
[~2023-04-30] VITALS: Ht 182.9 cm; Wt 138.3 kg
[~2023-04-30] MED LIST changes: +METF500T13 PO
[2023-04-30 08:14] VITALS: BP 101/58; TEMP 96.9; O2SAT 96
== END ==
LOC: M PAL 08:04
PROVIDERS: ATTEND Nurse Practitioner Adult Health
DX: C85.10 Unspecified B-cell lymphoma, unspecified site (principal); C83.50 Lymphoblastic (diffuse) lymphoma, unspecified site; G89.3 Neoplasm related pain (acute) (chronic); M25.50 Pain in unspecified joint; M79.10 Myalgia, unspecified site; R53.83 Other fatigue; R42 Dizziness and giddiness; F17.200 Nicotine dependence, unspecified, uncomplicated; Z51.5 Encounter for palliative care; Z79.01 Long term (current) use of anticoagulants; Z79.82 Long term (current) use of aspirin; Z79.84 Long term (current) use of oral hypoglycemic drugs; Z79.891 Long term (current) use of opiate analgesic; Z79.899 Other long term (current) drug therapy; Z88.8 Allergy status to other drugs, medicaments and biological substances

== ENCOUNTER → 2023-07-03 | Outpatient (CLI) | payer OTHER ==
[~2023-07-03] VITALS: Ht 182.9 cm; Wt 136.1 kg
[~2023-07-03] MED LIST changes: +ALLO100T PO; +DOXY100C3 PO; +VENC1TAB PO
[2023-07-03 09:23] VITALS: BP 108/64; O2SAT 97
== END ==
LOC: M PAL 09:10
PROVIDERS: ATTEND Nurse Practitioner Adult Health
DX: C83.30 Diffuse large B-cell lymphoma, unspecified site (principal); C88.0 Waldenstrom macroglobulinemia; G89.3 Neoplasm related pain (acute) (chronic); M25.50 Pain in unspecified joint; M79.10 Myalgia, unspecified site; R53.83 Other fatigue; R42 Dizziness and giddiness; F17.200 Nicotine dependence, unspecified, uncomplicated; Z51.5 Encounter for palliative care; Z79.01 Long term (current) use of anticoagulants; Z79.82 Long term (current) use of aspirin; Z79.84 Long term (current) use of oral hypoglycemic drugs; Z79.891 Long term (current) use of opiate analgesic; Z79.899 Other long term (current) drug therapy; Z88.8 Allergy status to other drugs, medicaments and biological substances

== ENCOUNTER → 2023-08-12 | Outpatient (CLI) | payer OTHER | LOC: M ONCM 07:27 | PROVIDERS: ATTEND Dietitian, Registered | DX: C83.50 Lymphoblastic (diffuse) lymphoma, unspecified site (principal); C88.0 Waldenstrom macroglobulinemia; Z71.3 Dietary counseling and surveillance; Z68.41 Body mass index [BMI] 40.0-44.9, adult; Z92.3 Personal history of irradiation ==

== ENCOUNTER → 2023-09-02 | Outpatient (CLI) | payer OTHER ==
[~2023-09-02] VITALS: Ht 182.9 cm; Wt 144.4 kg
[2023-09-02 09:03] VITALS: BP 124/80; O2SAT 94
== END ==
LOC: M PAL 08:56
PROVIDERS: ATTEND Nurse Practitioner Adult Health
DX: C83.30 Diffuse large B-cell lymphoma, unspecified site (principal); C88.0 Waldenstrom macroglobulinemia; G89.3 Neoplasm related pain (acute) (chronic); F17.200 Nicotine dependence, unspecified, uncomplicated; Z51.5 Encounter for palliative care; Z79.01 Long term (current) use of anticoagulants; Z79.82 Long term (current) use of aspirin; Z79.84 Long term (current) use of oral hypoglycemic drugs; Z79.891 Long term (current) use of opiate analgesic; Z79.899 Other long term (current) drug therapy; Z88.8 Allergy status to other drugs, medicaments and biological substances; Z92.21 Personal history of antineoplastic chemotherapy

== ENCOUNTER → 2023-12-02 | Outpatient (CLI) | payer OTHER ==
[~2023-12-02] VITALS: Ht 182.9 cm; Wt 154.2 kg
[2023-12-02 09:57] VITALS: BP 160/83; O2SAT 95
== END ==
LOC: M PAL 09:53
PROVIDERS: ATTEND Nurse Practitioner Adult Health
DX: G89.3 Neoplasm related pain (acute) (chronic) (principal); M25.511 Pain in right shoulder; M25.512 Pain in left shoulder; C83.30 Diffuse large B-cell lymphoma, unspecified site; C88.0 Waldenstrom macroglobulinemia; F17.200 Nicotine dependence, unspecified, uncomplicated; Z51.5 Encounter for palliative care; Z79.01 Long term (current) use of anticoagulants; Z79.82 Long term (current) use of aspirin; Z79.84 Long term (current) use of oral hypoglycemic drugs; Z79.891 Long term (current) use of opiate analgesic; Z79.899 Other long term (current) drug therapy; Z88.8 Allergy status to other drugs, medicaments and biological substances; Z92.21 Personal history of antineoplastic chemotherapy

== ENCOUNTER → 2024-02-04 | Outpatient (CLI) | payer OTHER ==
[~2024-02-04] VITALS: Ht 182.9 cm; Wt 157.9 kg
[~2024-02-04] MED LIST changes: +DOXY-440 PO; -DOXY-444 PO; +ONDA-284 PO; -ONDA8TAB8 PO; -POTA10CA60 PO; +POTA10CA70 PO
[2024-02-04 09:31] VITALS: BP 147/87; O2SAT 95
== END ==
LOC: M PAL 09:09
PROVIDERS: ATTEND Nurse Practitioner Adult Health
DX: G89.3 Neoplasm related pain (acute) (chronic) (principal); M25.511 Pain in right shoulder; M25.512 Pain in left shoulder; C83.30 Diffuse large B-cell lymphoma, unspecified site; C88.0 Waldenstrom macroglobulinemia; F17.200 Nicotine dependence, unspecified, uncomplicated; Z51.5 Encounter for palliative care; Z79.01 Long term (current) use of anticoagulants; Z79.82 Long term (current) use of aspirin; Z79.84 Long term (current) use of oral hypoglycemic drugs; Z79.891 Long term (current) use of opiate analgesic; Z79.899 Other long term (current) drug therapy; Z88.8 Allergy status to other drugs, medicaments and biological substances; Z92.21 Personal history of antineoplastic chemotherapy; R63.5 Abnormal weight gain

== ENCOUNTER → 2024-05-06 | Outpatient (CLI) | payer OTHER ==
[~2024-05-06] VITALS: Ht 182.9 cm; Wt 158.9 kg
[2024-05-06 09:34] VITALS: BP 174/104; O2SAT 97
[2024-05-06 10:13] VITALS: BP 160/90
== END ==
LOC: M PAL 09:26
PROVIDERS: ATTEND Nurse Practitioner Adult Health
DX: G89.3 Neoplasm related pain (acute) (chronic) (principal); M25.511 Pain in right shoulder; M25.512 Pain in left shoulder; C83.30 Diffuse large B-cell lymphoma, unspecified site; C88.0 Waldenstrom macroglobulinemia; F17.200 Nicotine dependence, unspecified, uncomplicated; Z51.5 Encounter for palliative care; Z79.01 Long term (current) use of anticoagulants; Z79.82 Long term (current) use of aspirin; Z79.84 Long term (current) use of oral hypoglycemic drugs; Z79.891 Long term (current) use of opiate analgesic; Z79.899 Other long term (current) drug therapy; Z88.8 Allergy status to other drugs, medicaments and biological substances; Z92.21 Personal history of antineoplastic chemotherapy

== ENCOUNTER → 2024-08-09 | Outpatient (CLI) | payer OTHER ==
[~2024-08-09] MED LIST changes: +METF-1156 PO; -METF-817 PO
== END ==
LOC: M PAL 14:17
PROVIDERS: ATTEND Family Medicine
DX: Z51.5 Encounter for palliative care (principal); C88.00 Waldenstrom macroglobulinemia not having achieved remission; R52 Pain, unspecified; Z79.891 Long term (current) use of opiate analgesic; Z79.01 Long term (current) use of anticoagulants; Z79.899 Other long term (current) drug therapy; Z79.1 Long term (current) use of non-steroidal anti-inflammatories (NSAID); Z88.8 Allergy status to other drugs, medicaments and biological substances

== ENCOUNTER → 2024-11-16 | Outpatient (CLI) | payer OTHER ==
[~2024-11-16] VITALS: Ht 190.5 cm; Wt 165.0 kg
[~2024-11-16] MED LIST changes: +OXYC-517 PO
[2024-11-16 08:38] VITALS: BP 117/74; O2SAT 95
== END ==
LOC: M PAL 08:12
PROVIDERS: ATTEND Physician Assistant
DX: Z51.5 Encounter for palliative care (principal); C88.00 Waldenstrom macroglobulinemia not having achieved remission; Z79.891 Long term (current) use of opiate analgesic; Z88.8 Allergy status to other drugs, medicaments and biological substances

== ENCOUNTER → 2024-12-21 | Outpatient (CLI) | payer OTHER ==
[~2024-12-21] VITALS: Ht 182.9 cm; Wt 170.7 kg
[2024-12-21 08:47] VITALS: BP 164/88; O2SAT 96
== END ==
LOC: M PAL 08:25
PROVIDERS: ATTEND Physician Assistant
DX: Z51.5 Encounter for palliative care (principal); Z79.891 Long term (current) use of opiate analgesic; Z88.8 Allergy status to other drugs, medicaments and biological substances; Z79.82 Long term (current) use of aspirin; Z79.899 Other long term (current) drug therapy; C88.00 Waldenstrom macroglobulinemia not having achieved remission

== ENCOUNTER → 2024-12-29 | Outpatient (CLI) | payer MEDICARE ==
[~2024-12-29] MED LIST changes: +ISOVUE-370 76% 100ML VIAL As Ordered ONE
== END ==
LOC: M RAD 10:12
PROVIDERS: ATTEND Nurse Practitioner Women's Health
DX: C83.30 Diffuse large B-cell lymphoma, unspecified site (principal); K76.0 Fatty (change of) liver, not elsewhere classified; K57.90 Diverticulosis of intestine, part unspecified, without perforation or abscess without bleeding
CPT/HCPCS: 70491; 71260; 74177; Q9967

== ENCOUNTER → 2025-04-04 | Outpatient (CLI) | payer MEDICARE ==
[~2025-04-04] MED LIST changes: +ACYC-438 PO; -ACYC1TAB PO; -AMIO200T49 PO; +AMIO200T54 PO; +ISOVUE-370 76% 100 ML VIAL As Ordered ONE; -ISOVUE-370 76% 100ML VIAL As Ordered ONE; +LISI40TA10 PO; -LISI40TA4 PO; -RA T500C2 PO; +TURM500C10 PO
== END ==
LOC: M RAD 10:24
PROVIDERS: ATTEND Specialist
DX: C85.90 Non-Hodgkin lymphoma, unspecified, unspecified site (principal)
CPT/HCPCS: 71260; 74177; Q9967

== ENCOUNTER → 2025-04-21 | Outpatient (CLI) | payer MEDICARE ==
[~2025-04-21] MED LIST changes: -ISOVUE-370 76% 100 ML VIAL As Ordered ONE
== END ==
LOC: M LAB 17:04
PROVIDERS: ATTEND Specialist
DX: C83.10 Mantle cell lymphoma, unspecified site (principal)

== ENCOUNTER 2025-04-22 07:40 | Outpatient (CLI) | payer MEDICARE ==
[~2025-04-22] VITALS: Ht 182.9 cm; Wt 170.6 kg
[~2025-04-22 07:40] MED LIST changes: +ALBUTEROL SULFATE 2.5 MG/0.5 ML INH CONCENTRATE NEB SOLN INH PRN; +EPINEPHrine INJ 1 MG/ML 1ML AMP IM PRN; +NS (Normal Saline) 0.9% 1,000 ML IV SCH; +diphenhydrAMINE 50 MG/ML VIAL IV PRN
[2025-04-22] MEDS: ACETAMINOPHEN 650MG PO PRIOR TO INFUSION PO ONE (07:57)
[2025-04-22] MEDS: diphenhydrAMINE 25MG IV PRIOR TO INFUSION IV ONE (07:57)
[2025-04-22 07:59] VITALS: BP 151/75; O2SAT 96
[2025-04-22] MEDS: IMMUNE GLOBULIN 10% 80 GM in IV 1 EA IV ONE (08:35)
[2025-04-22 09:10] VITALS: BP 154/90; O2SAT 99
[2025-04-22 09:38] VITALS: BP 154/77; O2SAT 96
[2025-04-22 10:10] VITALS: BP 144/78; O2SAT 98
[2025-04-22 10:40] VITALS: BP 142/80; O2SAT 99
[2025-04-22 12:10] VITALS: BP 138/82; O2SAT 99
== END 2025-04-22 12:10 ==
LOC: M INFU 07:40
PROVIDERS: ATTEND Specialist
DX: C88.00 Waldenstrom macroglobulinemia not having achieved remission (principal); D83.9 Common variable immunodeficiency, unspecified; Z88.8 Allergy status to other drugs, medicaments and biological substances
CPT/HCPCS: 96365; 96366; 96375; J1200; J1459; J2919

== ENCOUNTER → 2025-05-23 | Outpatient (CLI) | payer MEDICARE ==
[~2025-05-23] MED LIST changes: -ALBUTEROL SULFATE 2.5 MG/0.5 ML INH CONCENTRATE NEB SOLN INH PRN; -EPINEPHrine INJ 1 MG/ML 1ML AMP IM PRN; -NS (Normal Saline) 0.9% 1,000 ML IV SCH; +SEMA0.257; -diphenhydrAMINE 50 MG/ML VIAL IV PRN
== END ==
LOC: M INFU 07:41
PROVIDERS: ATTEND Specialist
DX: C88.00 Waldenstrom macroglobulinemia not having achieved remission (principal); D83.9 Common variable immunodeficiency, unspecified; Z88.8 Allergy status to other drugs, medicaments and biological substances

== ENCOUNTER → 2025-06-07 | Outpatient (CLI) | payer MEDICARE ==
[~2025-06-07] VITALS: Ht 182.9 cm; Wt 165.5 kg
[2025-06-07 16:39] VITALS: BP 150/86; O2SAT 95
== END ==
LOC: M PAL 16:26
PROVIDERS: ATTEND Physician Assistant
DX: Z51.5 Encounter for palliative care (principal); C88.00 Waldenstrom macroglobulinemia not having achieved remission; Z79.891 Long term (current) use of opiate analgesic; Z88.6 Allergy status to analgesic agent; Z79.899 Other long term (current) drug therapy; Z79.82 Long term (current) use of aspirin

== ENCOUNTER → 2025-08-02 | Outpatient (CLI) | payer MEDICARE ==
[~2025-08-02] MED LIST changes: -PROC5TAB57 PO; +PROC5TAB81 PO
== END ==
LOC: M SLEEP 20:00
PROVIDERS: ATTEND Physician Assistant
DX: G47.33 Obstructive sleep apnea (adult) (pediatric) (principal)

== ENCOUNTER → 2025-08-08 | Outpatient (CLI) | payer MEDICARE ==
[~2025-08-08] VITALS: Ht 182.9 cm; Wt 166.4 kg
[2025-08-08 16:12] VITALS: BP 138/78; O2SAT 96
== END ==
LOC: M PAL 15:55
PROVIDERS: ATTEND Physician Assistant
DX: Z51.5 Encounter for palliative care (principal); C88.01 Waldenstrom macroglobulinemia, in remission; Z88.8 Allergy status to other drugs, medicaments and biological substances; Z88.6 Allergy status to analgesic agent; Z79.82 Long term (current) use of aspirin; Z79.891 Long term (current) use of opiate analgesic; Z79.899 Other long term (current) drug therapy